=== PATIENT | female | born 1975 | race Two or more races ===

== ENCOUNTER 2020-04-09 14:40 | Outpatient (REF) | payer MEDICAID, SELFPAY | END 2020-04-09 14:41 | disposition home or self-care (01) | LOC: HO.LAB 14:40 | PROVIDERS: Visit Provider Internal Medicine | DX: Z20.828 Contact with and (suspected) exposure to other viral communicable diseases (principal) | CPT/HCPCS: C9803; U0003 ==

== ENCOUNTER 2020-08-06 12:55 | Outpatient (REF) | payer MEDICAID, SELFPAY ==
[2020-08-06 16:42] LABS: SARS COV2 PCR INHOUSE NEGATIVE (Negative)
== END 2020-08-06 12:56 | disposition home or self-care (01) ==
LOC: HO.LAB 12:55
PROVIDERS: Visit Provider Internal Medicine
DX: Z20.822 Contact with and (suspected) exposure to COVID-19 (principal)
CPT/HCPCS: C9803; U0003

== ENCOUNTER 2024-06-26 13:41 | Outpatient (AMB) | payer OTHER, SELFPAY ==
--- NOTE | 2024-06-26 13:54 | HO.NEPHOV_ITS ---
Vital Signs 06/26/24 13:55 Height 5 ft 8 in Weight 297 lb BMI 45.2 BP 120/74 Blood Pressure Location Lt brachial Position Sitting Pulse 106 H Pulse Source Pulse Oximeter Pulse Oximetry (%) 96 Oxygen Delivery Method Room Air Intake Visit Reasons: ENP: Medullary Sponge Kidney/ Conf Wireless Field Technician Required: No Accompanied by: Self / Same As Patient Allergies acetaminophen [From VICODIN] Allergy (Unknown, Verified 06/26/24 13:57) UNKNOWN hydrocodone [From VICODIN] Allergy (Unknown, Verified 06/26/24 13:57) UNKNOWN Medication List - Last Reconciled 06/26/24 by Robbie Calles MD albuterol sulfate 90 mcg/actuation (Ventolin HFA) inhalation escitalopram oxalate 5 mg PO DAILY gabapentin 300 mg PO BID hydroxyzine pamoate 25 mg PO TID PRN nitroglycerin 0.4 mg sublingual PRN HPI Comments Details: Nora is a pleasant 49-year-old woman 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 She was seen by water treatment plant engineer more than 13 years ago. She has had no further follow-up. She complains of low back pain. No urinary symptoms. She is on a regular diet Claims to drink adequate fluids. She smokes about half pack per day. No history of any illicit drug abuse [facility] Family History (Updated 06/26/24 @ 13:57 by YOU Castañeda) Mother CKD (chronic kidney disease) Diabetes Hypertension Sister Diabetes Hypertension Review of Systems Const Denies fever(s) and Denies weight loss Card Denies chest pain Resp Denies cough and Denies hemoptysis GI Denies abdominal pain, Denies diarrhea and Denies nausea Musc Denies back pain Neuro Denies focal weakness Physical Exam Vital Signs: Last Vital Signs Pulse 106 H 06/26/24 13:55 BP 120/74 06/26/24 13:55 Pulse Ox 96 06/26/24 13:55 Oxygen Delivery Method Room Air 06/26/24 13:55 BMI result Body Mass Index 45.2 Const General: comfortable; No acute distress Orientation/consciousness: patient oriented x3 Eyes General: appearance normal, both eyes and all related structures Visual Baltazar: normal visual baltazar by confrontation Neck Neck: Yes supple and Yes no JVD Resp Effort & Inspection: normal respiratory effort and respiratory effort not decreased Auscultation: rhonchi Cardio Palpation: no palpable S3 and no palpable S4 Heart sounds: no rubs GI Inspection: Yes normal to inspection Palpation (GI): Soft to palpation Percussion: Yes normal to percussion Auscultation: normal bowel sounds General: Yes no CVA tenderness Back/Spine/Pelvis Back: no CVA tenderness Skin General skin exam: no petechiae and no purpura Neuro General: patient oriented x3 and no focal motor deficits Extrem General: No clubbing and No edema Results Reviewed Results Reviewed: Serum creatinine 0.8 in 01/26/2024 Nephrology Results: No Data to Display Assessment & Plan Assessment & Plan (1) 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 I have initiated workup including renal ultrasonogram. Obtain 24 urine collection for stone studies. Based on the ultrasound and urine studies I will consider urology referral as well if needed. Encouraged her to stay on low-sodium diet She should increase fluid intake to maintain urine output of 2 L. Further recommendation will be based on the 24 hour urine collection. I have reassured her and answered all her questions Orders: Orders Sodium, 24Hr Urine Group Today Q61.5 - Medullary cystic kidney Uric Acid, 24Hr Urine Group Today Q61.5 - Medullary cystic kidney Comprehensive Met. Panel Today Q61.5 - Medullary cystic kidney Uric Acid Today Q61.5 - Medullary cystic kidney US renal BI Today Q61.5 - Medullary cystic kidney Creatinine, 24 Hr Group Today Q61.5 - Medullary cystic kidney Calcium, 24 Hr Ur Today Q61.5 - Medullary cystic kidney Oxalate, 24 Hr Today Q61.5 - Medullary cystic kidney Citric Acid 24hr Urine Today Q61.5 - Medullary cystic kidney UA and rflx microscopic Today Q61.5 - Medullary cystic kidney Coding Level of Care Code New Pt Level 4 (48716) Diagnoses Medullary sponge kidney Q61.5
[2024-06-26 13:55] VITALS: BP 120/74; PULSE 106; O2SAT 96; BMI 45.2
--- OUTSIDE RECORDS SUMMARY | 2024-06-26 14:03 | XMS_ITS | Encounter Summary ---
Author Organization [facility] Address [id number] [place] [phone] Care Team Providers Care Research Contracts Supervisor Name Role Phone [place] Solitario MD Primary Care Provider [phone] Reason for Visit * Reason Onset Date Comments Results 06/07/2024 Holter results Encounter Details Date Type Department Care Team ([facility] st Contact Info) Description 06/07/2024 Telephone [facility] - [facility] [address] [facility] [address] [place] [address] Guadalupe Mccabe NP [address] [place], [place] [id number] Results (Holter results ) Social History Tobacco Use Types Packs/Day Years Used Date Smoking Tobacco: Every Day Cigarettes Smokeless Tobacco: Never Comments:Smokes about 5-10 c igarettes daily Alcohol Use Standard Drinks/Week Comments Yes 0 (1 standard drink = 0.6 oz pur e alcohol) occasional Comments Unknown Sex and Gender Information Value Date Recorded Sex Assigned at Not on file Legal Sex Female 3:59 AM EST Gender Identity Not on file Sexual Orientation Not on file documented as of this encounter Progress Notes * Faye Agustin MA - 06/07/2024 3:31 PM EST I called and spoke with the patient and they are aware of the results of * Faye Agustin MA - 06/07/2024 3:30 PM EST ----- Message from Yvon Mccabe NP sent at 06/07/2024 8:43 AM EST ----- Beatrice--can you pls let the pt know that her monitor looked good. There were no dangerous heart rhythms identified. Each time she had symptoms, her EKG was normal This is great news. Thank you documented in this encounter Plan of Treatment Not on file documented as of this encounter Visit Diagnoses Not on filedocumented in this encounter Care Teams Research Contracts Supervisor Relationship Specialty Start Date End Date [place] Solitario MD [address] [place] [phone] PCP - General Internal Medicine 03/08/24 documented as of this encounter
--- OUTSIDE RECORDS SUMMARY | 2024-06-26 14:03 | XMS_ITS | Clinical Summary ---
Author Organization [facility] [address] [place] [address] [place] [phone] Phone Care Team Providers Care Warp Worker Name Role Phone [place] Solitario MD Primary Care Provider [phone] Allergies No known active allergies Medications gabapentin (NEURONTIN) 100 mg capsule Take 1 capsule (100 mg total) by mouth 2 (two) times a day. 03/06/2024 Active nitroglycerin (NITROSTAT) 0.[address] 1 tablet (0.4 mg total) under the tongue every 5 (five) minutes if needed for chest pain. Active albuterol HFA (PROAIR HFA ; PROVENTIL HFA ; VENTOLIN HFA) 90 mcg/actuation inhaler Inhale 2 puffs by mouth every 6 (six) hours if needed for wheezing. Active Active Problems Problem Noted Date Diagnosed Date Other chest pain 03/15/2024 Assessment & Plan (03/15/2024 3:40 PM EST): Sounds noncardiac but given ongoing dyspnea on exertion symptoms and risk factors of tobacco use family history of premature coronary disease, I think it would be reasonable to restratification her with an ETT. This would also allow me to assess her heart rate and blood pressure response to exercise since she wishes to embark on an exercise program. We will plan to do this first available. Palpitations 03/15/2024 Assessment & Plan (03/15/2024 3:40 PM EST): Will plan to do a 30-day event monitor to make sure that there are no significant arrhythmias associated with intermittent palpitation symptoms. Tobacco use 03/15/2024 Assessment & Plan (03/15/2024 3:41 PM EST): Patient is motivated to quit. She has both the nicotine patch and Nicorette gum at her disposal. I wished her the best of luck with this. Medullary sponge kidney 03/15/2024 Rheumatoid arthritis involving multiple sites Encounters Date Type Department Care Team Description 06/07/2024 Telephone [facility] - [address] [place] [address] Guadalupe Mccabe NP Results (Holter results ) 05/06/2024 7:00 AM EST Ancillary Procedure [facility] - [address] [place] [address] Palpitations 04/22/2024 Telephone [facility] Cardiology [facility] - [address] [place] [address] Guadalupe Mccabe NP 04/01/2024 10:45 AM EST Ancillary Procedure [facility] - [address] [place] [address] Chest pain, unspecified type; Palpitations 03/27/2024 Telephone [facility]iology [facility] - [address] [place] [address] Manju Vazquez MD ROCT - [id number]; ROCT Enrollment (Enrolling patient for 30 day ROCT) from Last 3 Months Family History Medical History Relation Name Comments No Known Problems Father Heart attack Maternal Grandmother Diabetes Mother ESRD Mother Heart attack Mother Diabetes Sister 1 Heart disease Sister 1 age 62 Chronic Kidney Disease Sister 2 Relation Name Status Comments Father Maternal Grandmother Mother Sister 1 Alive Sister 2 Alive Social History Tobacco Use Types Packs/Day Years Used Date Smoking Tobacco: Every Day Cigarettes Smokeless Tobacco: Never Tobacco Cessation:Ready to Q uit: Not Asked; Counseling Given: Not Answered Comments:Smokes about 5-10 cigarettes daily Alcohol Use Standard Drinks/Week Comments Yes 0 (1 standard drink = 0.6 oz pur e alcohol) occasional Comments Unknown Sex and Gender Information Value Date Recorded Sex Assigned at Not on file Legal Sex Female 3:59 AM EST Gender Identity Not on file Sexual Orientation Not on file Obstetrics History Last Filed Vital Signs Vital Sign Reading Time Taken Comments Blood Pressure 117/81 04/01/2024 10:45 AM EST Pulse 81 03/15/2024 12:54 PM EST Temperature - - Respiratory Rate - - Oxygen Saturation 95% 03/15/2024 12:54 PM EST Inhaled Oxygen Concentration - - Weight 138 kg (305 lb) 04/01/2024 10:45 AM EST Height 170.2 cm (5' 7 ) 04/01/2024 10:45 AM EST Body Mass Index 47.77 04/01/2024 10:45 AM EST Plan of Treatment Health Maintenance Due Date Last Done Comments Breast Cancer Screening 1974 DTaP,Tdap,and Td Vaccines (1 - Tdap) 1993 Hepatitis B Vaccines (1 of 3 - 19+ 3-dose series) 1993 Pneumococcal Vaccine: 50+ Ye ars (1 of 2 - PCV) 1993 Pneumococcal Vaccine: Pediat rics (0 to 5 Years) and At-Risk Patients (6 to 64 Years) (1 of 2 - PCV) 1993 Cervical Cancer Screening: P ap Smear 1995 Cholesterol Screening (Lipid Panel) 06/06/2023 Colorectal Cancer Screening: Colonoscopy 06/06/2023 Depression Screening 06/06/2023 HIV Screening 06/06/2023 Hepatitis C Screening 06/06/2023 Social Influencers of Health Screening 06/06/2023 COVID-19 Vaccine ( - 2023-2 5 season) 2024 Influenza Vaccine (#1) 2024 Zoster Vaccines (1 of 2) 02/23/2024 HIB Vaccines Aged Out No longer eligi ble based on patient's age to complete this topic HPV Vaccines Aged Out No longer eligi ble based on patient's age to complete this topic Hepatitis A Vaccines Aged Out No long er eligible based on patient's age to complete this topic IPV Vaccines Aged Out No longer eligi ble based on patient's age to complete this topic MMR Vaccines Aged Out No longer eligi ble based on patient's age to complete this topic Meningococcal ACWY Vaccine Aged Out N o longer eligible based on patient's age to complete this topic Meningococcal B Vacine Aged Out No lo nger eligible based on patient's age to complete this topic RSV Immunization Patients Un blane 20 months Aged Out No longer eligible b ased on patient's age to complete this topic Varicella Vaccines Aged Out No longer eligible based on patient's age to complete this topic Procedures Procedure Name Priority Date/Time Associated Diagnosis Comments CARDIAC AIR TESTER W/ CONNECTION (MCOT) Routine 05/06/2024 12:42 PM EST Palpitations STRESS TEST ONLY EXERCISE Routine 04/01/2024 11:23 AM EST Chest pain, unspecified type Palpitations from Last 3 Months Results * CARDIAC AIR TESTER W/ CONNECTION (MCOT) (05/06/2024 12:42 PM EST) Anatomical Region Laterality Modality Cardiac Diagnost ic Impressions 06/06/2024 5:53 PM EST 1. ??Predominantly sinus rhythm. 2. ??Short episodes of what is likely atrial tachycardia with aberrant conduction. ??Each episode lasted only 8 beats. ??Cannot rule out atrial flutter with aberrant conduction. 3. ??Patient triggered symptomatic events mainly correlated to sinus rhythm and sinus tachycardia. Narrative 06/06/2024 5:53 PM EST [facility] DI[facility] DEPARTMENT [address] [place] [address] TEL: FAX: TYPE OF TEST 30 day ROCT monitor. DATES OF MONITORIN05/06/24- 06/05/24 (Monitor removed intermittently due to skin irritation. No data after 05/29/24) REQUESTING PHYSICIAN: Manju Vazquez MD PRIMARY CARE PROVIDER: [place] Solitario MD INDICATION: Palpitations PRELIMINARY FINDINGS FROM FIRST CALL MEDICAL: 1. The predominant rhythm was sinus, with sinus arrhythmia. The average heart rate was 79 bpm, minimum heart rate was 46 bpm, maximum heart rate was 149 bpm. 2. ??There was occasional ventricular ectopy. ??The overall burden was 0.2%, consisting of singles, couplets, triplets, 3. ??There were a 2 runs of what is likely atrial tachycardia with aberrant conduction versus atrial flutter with aberrant conduction. ??Both lasted for 8 beats. 4. ??There was occasional supraventricular ectopy. ??The overall burden was 0.9%, consisting of singles, couplets, & SVE triplets. 5. There were 14 patient triggered symptomatic events. ??They mainly correlated to either sinus rhythm or sinus tachycardia in the 100s to 130s. Manju Vazquez MD CV CARDIAC SERVICES PROCEDURES Final Result * Exercise stress test (04/01/2024 11:23 AM EST) Exercise/inject ion duration (min) 3 CV STRESS ONLY Exercise/inject ion duration (sec) 27 CV STRESS ONLY Peak SBP 152 mmHg CV STRESS ONLY Peak DBP 68 mmHg CV STRESS ONLY Peak HR 153 bpm CV STRESS ONLY Baseline HR 101 bpm CV STRES S ONLY Baseline SBP 117 mmHg CV STRE SS ONLY Baseline DBP 81 mmHg CV STRE SS ONLY Estimated workload 5.6 METS CV STRESS ONLY Percent HR 90 % CV STRESS ONLY Rate Pressure Product 23,256.0 mmHg*bpm CV STRESS ONLY Target HR 145 bpm CV STRESS ONLY Angina Index 0 CV STRE SS ONLY Max HR Percent 90 % CV ST RESS ONLY O2 sat rest 97 % CV STRES S ONLY ST Depression (mm) 0 mm CV STRESS ONLY Anatomical Region Laterality Modality Cardiac Diagnost ic 04/01/2024 10:4 6 AM EST 04/01/2024 11:27 AM EST Narrative 04/01/2024 4:55 PM EST ?Stress ECG was normal. No evidence of ischemia by ECG at this adequate level of stress. ?Exercise capacity was below average. Normal blood pressure response. ?Rapid increase in heart rate suggests deconditioning. Stress Findings A Jean protocol stress test was performed. Overall, the patient's exercise capacity was below average. The patient reached stage 2. Total stress time was 3 min and 27 sec. The patient experienced no angina during the test. The test was stopped because the patient experienced fatigue, shortness of breath and left leg pain. The patient requested the test to be stopped. Blood pressure demonstrated a normal response. Heart rate demonstrated a exaggerated response. The patient reported shortness of breath during the stress test which resolved in early recovery. ECG 49-year-old female with atypical chest pain and palpitations; rule out ischemia. Cardiac risk factors include obesity and current tobacco use. Baseline ECG shows normal sinus rhythm, rate of 85 bpm. Arrhythmias during stress: rare premature atrial contractions (PACs), occasional premature ventricular contractions (PVCs) . There is no ST segment changes during stress. Arrhythmias during recovery: occasional premature ventricular contractions (PVCs). The result of the stress ECG was negative for ischemia. Manju Vazquez MD CV STRESS PROCEDURES Final Resu lt from Last 3 Months Insurance [facility] [email or web address] PLAN Care Teams Warp Worker Relationship Specialty Start Date End Date [place] Solitario MD [address] [facility] [address] [place] [phone] PCP - General Internal Medicine 03/08/24
== END 2024-06-26 14:11 | disposition home or self-care (01) ==
LOC: HO.HKAM 13:41
PROVIDERS: PCP Internal Medicine; Referring Provider Internal Medicine; Visit Provider Internal Medicine Hypertension Specialist
DX: Q61.5 Medullary cystic kidney (principal)
CPT/HCPCS: 99204

== ENCOUNTER → 2024-06-26 13:41 | Outpatient (BNVA) | payer OTHER, SELFPAY | PROVIDERS: PCP Internal Medicine; Referring Provider Internal Medicine; Visit Provider Internal Medicine Hypertension Specialist | DX: Q61.5 Medullary cystic kidney (principal) | CPT/HCPCS: 99202 ==

== ENCOUNTER 2024-06-26 14:21 | Outpatient (REF) | payer OTHER, SELFPAY ==
--- OUTSIDE RECORDS SUMMARY | 2024-06-26 14:29 | XMS_ITS | Clinical Summary ---
Author Organization [facility] [address] [place] [address] [place] [phone] Phone Care Team Providers Care Heater Operator Name Role Phone [place] Solitario MD Primary Care Provider [phone] Allergies No known active allergies Medications gabapentin [...] Type Department Care Team Description 06/07/2024 Telephone [facility] - [address] [place] [address] Guadalupe Mccabe NP Results (Holter results ) 05/06/2024 7:00 AM EST Ancillary Procedure [facility] - [address] [place] [address] Palpitations 04/22/2024 Telephone [facility] Cardiology [facility] - [address] [place] [address] Guadalupe Mccaeb NP 04/01/2024 10:45 AM EST Ancillary Procedure [facility] - [address] [place] [address] Chest pain, unspecified type; Palpitations 03/27/2024 Telephone [facility] Cardiology [facility] - [address] [place] [address] Manju Vazquez MD ROCT - [id number]; ROCT Enrollment (Enrolling patient for 30 day [...] Name Priority Date/Time Associated Diagnosis Comments CARDIAC MEDICAL PHYSIOLOGIST W/ CONNECTION (MCOT) Routine 05/06/2024 12:42 PM EST Palpitations STRESS TEST ONLY EXERCISE Routine 04/01/2024 11:23 AM EST Chest pain, unspecified type Palpitations from Last 3 Months Results * CARDIAC MEDICAL PHYSIOLOGIST W/ CONNECTION (MCOT) (05/06/2024 12:42 PM EST) [...] sinus tachycardia. Narrative 06/06/2024 5:53 PM EST [facility] DI[facility] TESTING DEPARTMENT [address] [place] [address] TEL: FAX: TYPE OF TEST 30 day [...] Resu lt from Last 3 Months Insurance [facility] [employer] PL[employer] Care Teams Heater Operator Relationship Specialty Start Date End Date Florida Solitario MD [address] [facility] 300 [place] [address] PCP - General Internal Medicine 03/08/24
--- OUTSIDE RECORDS SUMMARY | 2024-06-26 14:29 | XMS_ITS | Encounter Summary ---
Author Organization [facility] Address [address] [place] [phone] Care Team Providers Care Salesperson Men[employer] Name Role Phone [place] Solitario MD Primary Care Provider [phone] Reason for Visit * Reason Onset Date Comments Results 06/07/2024 Holter results Encounter Details Date Type Department Care Team ([facility] st Contact Info) Description 06/07/2024 Telephone [facility] - [facility] [address] [facility] [address] [place] [address] Guadalupe Mccabe NP [address] [place], [place] [id number] Results (Holter results ) Social History Tobacco [...] on filedocumented in this encounter Care Teams Salesperson [employer] Relationship Specialty Start Date End Date Florida Solitario MD [address] [place] [phone] PCP - General Internal Medicine 03/08/24 documented as of this encounter
[2024-06-26 16:37] LABS: Alanine Aminotransferase 16 U/L (0-31); Albumin Level 3.8 g/dL (3.5-5.0); Alkaline Phosphatase 101 U/L (39-117); Anion Gap 10 (12-20); Aspartate Amino Transferase 17 U/L (5-31); Bilirubin Total 0.2 mg/dL (0.0-1.0); Blood Urea Nitrogen 11 mg/dL (9-16); Carbon Dioxide 26 mmol/L (22-29); Chloride 108 mmol/L (96-108); Estimated Glomerular Filt Rate > 60; Glucose Random 90 mg/dL (60-115); Sodium 140 mmol/L (135-145); Total Protein 7.6 g/dL (6.5-8.0); Uric Acid 5.3 mg/dL (2.4-5.7)
== END 2024-06-26 14:22 | disposition home or self-care (01) ==
LOC: HO.HHCL 14:21
PROVIDERS: Visit Provider Internal Medicine Hypertension Specialist
DX: Q61.5 Medullary cystic kidney (principal)
CPT/HCPCS: 36415; 80053; 84550

== ENCOUNTER 2024-06-27 14:42 | Outpatient (REF) | payer OTHER, SELFPAY ==
--- OUTSIDE RECORDS SUMMARY | 2024-06-27 15:50 | XMS_ITS | Encounter Summary ---
Author Organization [facility] Address [address] [place] [phone] Care Team Providers Care Collection Agent Name Role Phone [place] Solitario MD Primary Care Provider [phone] Reason for Visit * Reason Onset Date Comments Results 06/07/2024 Holter results Encounter Details Date Type Department Care Team ([facility] st Contact Info) Description 06/07/2024 Telephone [facility] - [facility] [address] [facility] [address] [place] [address] Guadalupe Mccabe NP [address] [place], [place] [phone] Results (Holter results ) Social History Tobacco [...] on filedocumented in this encounter Care Teams Collection Agent Relationship Specialty Start Date End Date [place] Solitario MD [address] [place] [phone] PCP - General Internal Medicine 03/08/24 documented as of this encounter
--- OUTSIDE RECORDS SUMMARY | 2024-06-27 15:50 | XMS_ITS | Clinical Summary ---
Author Organization [facility] [address] [place] [address] [place] [phone] Phone Care Team Providers Care Provider Scribe Name Role Phone [place] Solitario MD Primary Care Provider [phone] Allergies No known active allergies Medications gabapentin [...] Type Department Care Team Description 06/07/2024 Telephone [facility] - [address] [place] [address] Guadalupe Mccabe NP Results (Holter results ) 05/06/2024 7:00 AM EST Ancillary Procedure [facility] - [address] [place] [address] Palpitations 04/22/2024 Telephone [facility] Cardiology [facility] - [address] [place] [address] Guadalupe Mccabe NP 04/01/2024 10:45 AM EST Ancillary Procedure [facility] - [address] [place] [address] Chest pain, unspecified type; Palpitations 03/27/2024 Telephone [facility] Cardiology [facility] - [address] [place] [address] Manju Vazquez MD ROCT - [id number]; ROCT Enrollment (Enrolling patient for 30 day [...] Name Priority Date/Time Associated Diagnosis Comments CARDIAC SUPERVISOR METAL CANS W/ CONNECTION (MCOT) Routine 05/06/2024 12:42 PM EST Palpitations STRESS TEST ONLY EXERCISE Routine 04/01/2024 11:23 AM EST Chest pain, unspecified type Palpitations from Last 3 Months Results * CARDIAC SUPERVISOR METAL CANS W/ CONNECTION (MCOT) (05/06/2024 12:42 PM EST) [...] sinus tachycardia. Narrative 06/06/2024 5:53 PM EST [facility] DIAGNOSTIC TESTING DEPARTMENT [address] [place] [address] TEL: FAX: TYPE OF TEST 30 day [...] Resu lt from Last 3 Months Insurance [facility] [employer] PL[employer] Care Teams Provider Scribe Relationship Specialty Start Date End Date Florida Solitario MD [address] [facility] [address] [place] [address] PCP - General Internal Medicine 03/08/24
[2024-06-27 16:29] LABS: Appearance Urine Turbid; Color Urine Yellow; Glucose Urine UA Negative (Negative); Leukocyte Esterase Urine Large (3+) (Negative); Nitrite Urine Negative (Negative); Specific Gravity - Urine 1.025 (1.005-1.025); UMIC TRIGGER UA YES; Urine Blood Negative (Negative); Urine Ketones Negative (Negative); Urine Protein Negative (Neg-Trace)
[2024-06-27 16:30] LABS: Estimated Glomerular Filt Rate > 60
[2024-06-27 17:17] LABS: Bacteria Urine 4+ (None Seen); Hyaline Casts Urine 0-2 /LPF (0-2); RBC Urine 0-2 /HPF (0-2); Squamous Epithelial Cell Urine >20 /HPF (0-2); WBC Urine >50 /HPF (0-5)
[2024-06-27 17:23] LABS: Creatinine, mg/dL 157.58
[2024-06-27 17:26] LABS: Creatinine, mg/dL 157.56; Uric Acid, mg/dL 51.5 mg/dL
[2024-06-27 18:25] LABS: Total Volume 24 Hour Urine 1250 mL
[2024-06-27 18:26] LABS: Total Volume 24 Hour Urine 1250 mL
[2024-06-27 18:27] LABS: Uric Acid, 24 Hr Urine 643.8 mg/Day (250-750)
[2024-06-29 21:24] LABS: Calcium, 24 Hr Urine 120 mg/24 h; Calcium/Creatinine Ratio 64 mg/g creat (30-275); Creatinine 24Hr Urine 1.86 g/24 h (0.50-2.15)
[2024-07-02 22:19] LABS: 24hr Urine Total Volume 1250 mL; Citric Acid, 24hr Urine 726 mg/24 h (100-1300); Citric Acid/Creat Ratio 24U 395 mg/g creat (180-1070); Creatinine, 24U 1.84 g/24 h (0.50-2.15)
[2024-07-03 20:33] LABS: 24hr Urine Total Volume 1250 mL; Oxalic Acid 24 Urine 40.1 mg/24 h (3.6-38.0)
== END 2024-06-27 14:43 | disposition home or self-care (01) ==
LOC: HO.HHCL 14:42
PROVIDERS: Visit Provider Internal Medicine Hypertension Specialist
DX: Q61.5 Medullary cystic kidney (principal)
CPT/HCPCS: 36415; 81001; 82340; 82507; 82565; 83945; 84300; 84560

== ENCOUNTER 2024-07-30 15:12 | Outpatient (REF) | payer OTHER, SELFPAY ==
--- NOTE | ~2024-07-30 | US_ITS ---
EXAMINATION: Ultrasound renal bilaterally. CLINICAL INFORMATION: Medullary cystic kidney. COMPARISON: No priors. TECHNIQUE: Real-time ultrasound of the kidneys using grayscale and color Doppler technique. FINDINGS: Right kidney: 11 x 5 x 3 cm. Volume: 93 cc. Normal echotexture. No hydronephrosis. No gross solid or cystic lesion. Nonspecific punctate hyperechoic foci in the lower pole. There is normal flow on color Doppler interrogation of the renal hilum. Left kidney: 10 x 5 x 4 cm. Volume: 100 cc. Normal echotexture. Normal renal cortical thickness. No hydronephrosis. No solid or cystic lesion. Normal flow on color Doppler interrogation of the renal hilum. US/US renal BI IMPRESSION: No hydronephrosis. Questionable nonobstructing nephrolithiasis, right kidney. Electronically signed by: Michel Colon MD 07/30/2024 03:53 PM EDT
--- OUTSIDE RECORDS SUMMARY | 2024-07-30 19:04 | XMS_ITS | Clinical Summary ---
Author Organization [facility] [address] [place] [address] [place] [phone] Phone Care Team Providers Care Despatching And Receiving Clerk Name Role Phone [place] Solitario MD Primary Care Provider [phone] Allergies No known active allergies Medications gabapentin [...] Telephone [facility] - [address] [place] [id number] Guadalupe Mccabe NP Results (Holter results ) 05/06/2024 7:00 AM EST Ancillary Procedure [facility] - [address] [place] [phone] Palpitations from Last 3 Months Family History Medical [...] Influencers of Health Screening 06/06/2023 COVID-19 Vaccine (2023-2 5 season) 2024 Influenza Vaccine (#1) 2024 [...] Name Priority Date/Time Associated Diagnosis Comments CARDIAC IMPLANT POLISHER W/ CONNECTION (MCOT) Routine 05/06/2024 12:42 PM EST Palpitations from Last 3 Months Results * CARDIAC IMPLANT POLISHER W/ CONNECTION (MCOT) (05/06/2024 12:42 PM EST) [...] sinus tachycardia. Narrative 06/06/2024 5:53 PM EST [facility]PARTMENT [address] [place] [address], [address] [address] TEL: FAX: TYPE OF TEST 30 day [...] MD CV CARDIAC SERVICES PROCEDURES Final Result from Last 3 Months Insurance [facility] Care Teams Despatching And Receiving Clerk Relationship Specialty Start Date End Date [place] Solitario MD [address] [phone] PCP - General Internal Medicine 03/08/24
== END 2024-07-30 15:13 | disposition home or self-care (01) ==
LOC: HO.US 15:12
PROVIDERS: Visit Provider Internal Medicine Hypertension Specialist
DX: Q61.5 Medullary cystic kidney (principal)
CPT/HCPCS: 76775

== ENCOUNTER → 2024-07-30 15:14 | Outpatient (BNV) | payer OTHER, SELFPAY | PROVIDERS: Visit Provider Radiology Diagnostic Radiology | DX: Q61.5 Medullary cystic kidney (principal) | CPT/HCPCS: 76775 ==

== ENCOUNTER 2024-08-21 13:38 | Outpatient (AMB) | payer OTHER, SELFPAY ==
--- NOTE | 2024-08-21 13:42 | HO.NEPHOV ---
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: No Accompanied by: Self / Same As Patient Allergies acetaminophen [From VICODIN] Allergy (Unknown, Verified 08/21/24 13:47) UNKNOWN hydrocodone [From VICODIN] Allergy (Unknown, Verified 08/21/24 13:47) UNKNOWN Medication List - Last Reconciled 08/21/24 by Robbie Calles MD albuterol sulfate 90 mcg/actuation (Ventolin HFA) inhalation escitalopram oxalate 5 mg PO DAILY gabapentin 300 mg PO BID hydroxyzine pamoate 25 mg PO TID PRN nitroglycerin 0.4 mg sublingual PRN Do you need a note to return to daycare/school/sports/work: No HPI Comments Details: Nora is a pleasant 49-year-old woman 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 She was seen by fire behavior analyst more than 13 years ago. She has had no further follow-up. She complains of low back pain. No urinary symptoms. She is on a regular diet Claims to drink adequate fluids. She smokes about half pack per day. No history of any illicit drug abuse [facility] Family History Mother CKD (chronic kidney disease) Diabetes Hypertension Sister Diabetes Hypertension Physical Exam Vital Signs: Last Vital Signs Pulse 92 08/21/24 13:43 BP 118/64 08/21/24 13:43 Pulse Ox 95 08/21/24 13:43 Oxygen Delivery Method Room Air 08/21/24 13:43 BMI result Body Mass Index 38.8 Const General: comfortable; No acute distress Orientation/consciousness: patient oriented x3 Eyes General: appearance normal, both eyes and all related structures Visual Baltazar: normal visual baltazar by confrontation Neck Neck: Yes supple and Yes no JVD Resp Effort & Inspection: normal respiratory effort and respiratory effort not decreased Auscultation: rhonchi Cardio Palpation: no palpable S3 and no palpable S4 Heart sounds: no rubs GI Inspection: Yes normal to inspection Palpation (GI): Soft to palpation Percussion: Yes normal to percussion Auscultation: normal bowel sounds General: Yes no CVA tenderness Back/Spine/Pelvis Back: no CVA tenderness Skin General skin exam: no petechiae and no purpura Neuro General: patient oriented x3 and no focal motor deficits Extrem General: No clubbing and No edema Results Reviewed Results Reviewed: Renal ultrasonogram. July 2024. 11 x 5 x 3 cm. Volume: 93 cc. Normal echotexture. No hydronephrosis. No gross solid or cystic lesion. Nonspecific punctate hyperechoic foci in the lower pole. There is normal flow on color Doppler interrogation of the renal hilum. Left kidney: 10 x 5 x 4 cm. Volume: 100 cc. Normal echotexture. Normal renal cortical thickness. No hydronephrosis. No solid or cystic lesion. Normal flow on color Doppler interrogation of the renal hilum. 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 Renal ultrasonogram - normal 24 urine collection for stone studies. Volume is low NA elevated mild elevation in oxalate Low oxalate diet Encouraged her to stay on low-sodium diet She should increase fluid intake to maintain urine output of 2 L. I have reassured her and answered all her questions Orders: Orders Basic Metabolic Panel 6 Months Q61.5 - Medullary cystic kidney Coding Level of Care Code Est Pt Level 4 (49696) Diagnoses Medullary sponge kidney Q61.5
[2024-08-21 13:43] VITALS: BP 118/64; PULSE 92; O2SAT 95; BMI 38.8
--- OUTSIDE RECORDS SUMMARY | 2024-08-21 16:17 | XMS_ITS | Clinical Summary ---
Author Organization [facility] [address] [place] [address] [place] [phone] Phone Care Team Providers Care High School Social Studies Teacher Name Role Phone [place] Solitario MD Primary Care Provider [phone] Allergies No known active allergies Medications gabapentin [...] this. Medullary sponge kidney 03/15/2024 Rheumatoid arthritis involvi ng multiple sites ([facility] V24, [facility] V28) 03/15/2024 Encounters Date Type Department Care Team Description 06/07/2024 Telephone [facility] [address] [facility] [address] [place] [address] Guadalupe Mccabe NP Results (Holter results ) from Last 3 Months Family History Medical [...] Vaccine ( - 2023-2 5 season) 2024 Zoster Vaccines (1 of 2) 02/23/2024 Influenza Vaccine (Season Ended) 2025 HIB Vaccines Aged Out No longer eligi [...] age to complete this topic Meningococcal B Vaccine Aged Out No l onger eligible based on patient's age to complete this topic RSV Immunization Patients Un blane 20 months Aged Out No longer eligible b ased on patient's age to complete this topic Varicella Vaccines Aged Out No longer eligible based on patient's age to complete this topic Insurance [facility] Care Teams High School Social Studies Teacher Relationship Specialty Start Date End Date Florida Solitario MD [address] [phone] PCP - General Internal Medicine 03/08/24
== END 2024-08-21 14:05 | disposition home or self-care (01) ==
LOC: HO.HKAM 13:38
PROVIDERS: PCP Internal Medicine; Visit Provider Internal Medicine Hypertension Specialist
DX: Q61.5 Medullary cystic kidney (principal)
CPT/HCPCS: 99214

== ENCOUNTER → 2024-08-21 13:38 | Outpatient (BNVA) | payer OTHER, SELFPAY | PROVIDERS: PCP Internal Medicine; Visit Provider Internal Medicine Hypertension Specialist | DX: Q61.5 Medullary cystic kidney (principal) | CPT/HCPCS: 99212 ==

== ENCOUNTER 2025-01-09 07:44 | Outpatient (AMB) | payer OTHER, SELFPAY ==
--- OUTSIDE RECORDS SUMMARY | 2025-01-09 07:47 | XMS_ITS | Clinical Summary ---
Author Organization [facility] [address] [place] [address] [place] [phone] Phone Care Team Providers Care Educational Psychology Professor Name Role Phone [place] Solitario MD Primary Care Provider [phone] Allergies No known active allergies Medications gabapentin [...] 03/15/2024 Rheumatoid arthritis involvi ng multiple sites ([facility] V24, [facility] V28) 03/15/2024 Family History Medical History Relation Name Comments [...] ars (1 of 2 - PCV) 1993 Cervical Cancer Screening: P ap Smear 1995 Cholesterol Screening (Lipid Panel) 06/06/2023 Colorectal Cancer Screening: Colonoscopy 06/06/2023 HIV Screening 06/06/2023 Hepatitis C Screening 06/06/2023 Social Influencers of Health Screening 06/06/2023 Zoster Vaccines (1 of 2) 02/23/2024 Depression Screening 05/08/2024 COVID-19 Vaccine (1 - 2023-2 5 season) 2025 Influenza Vaccine (#1) 2025 HIB Vaccines Aged Out No longer [...] patient's age to complete this topic Insurance [facility] Care Teams Educational Psychology Professor Relationship Specialty Start Date End Date [place] Solitario MD [address] [place] [address] [address] [place] [phone] PCP - General Internal Medicine 03/08/24
--- NOTE | 2025-01-09 07:50 | A.OFFVIS_ITS ---
Vital Signs 01/09/25 07:52 Height 5 ft 8 in Weight 280 lb BMI 42.6 BP 119/63 Blood Pressure Location Lt brachial Position Sitting Pulse 107 H Pulse Oximetry (%) 98 Oxygen Delivery Method Room Air Intake Visit Reasons: colo screening Intake Note: Patient new consult for 1st pre Colonoscopy screening. Patient cc: abdominal pain/sharp with bloating, GERD, N/V, and between diarrhea and constipation. Transportation Analyst Required: No Accompanied by: Self / Same As Patient Allergies acetaminophen (From VICODIN) Allergy (Unknown, Verified 01/09/25 07:50) UNKNOWN hydrocodone (From VICODIN) Allergy (Unknown, Verified 01/09/25 07:50) UNKNOWN Medication List - Last Reconciled 01/09/25 by Hue Jarrett CNP albuterol sulfate 90 mcg/actuation (Ventolin HFA) inhalation escitalopram oxalate 5 mg PO DAILY gabapentin 300 mg PO BID hydroxyzine pamoate 25 mg PO TID PRN ibuprofen 800 mg PO Q8H PRN nitroglycerin 0.4 mg sublingual PRN HPI HPI colo screening: Details: Patient is a 49-year-old female with PMH of obesity, depression, anxiety, RA and prediabetes. Referred by PCP for pre colonoscopy screening. Nora reports various GI symptoms. She describes nausea occurring daily, sometimes accompanied by vomiting about 1-2 times per month. She notes decreased appetite over the past two months. Recurrent, generalized abdominal pain, described as heavy with intermittent sharp episodes, has been ongoing for some time. The pain appears to improve after bowel movements but does not seem influenced by food intake. Bowel movements are generally type 3-4 on the Young Stool Chart, with a frequency of 2-3 times daily. She denies blood in stools except for one episode related to a hemorrhoid three to four years ago. She also reports chronic heartburn, frequent regurgitation, and attempts symptomatic relief with lactase-containing milk or nyzm-oih-flcnzxh antacids like Rolaids, with inconsistent results. She has a history of regular NSAID use, consuming ibuprofen 3 times per week for back pain. She denies diarrhea, fever, or chills. Significant weight fluctuation noted, with a maximum weight of 297 lbs as recently as June and intermittent weight loss through increased activity that has since been regained. History of cardiovascular symptoms managed with nitroglycerin 1-2 times per month for chest pain, per cardiology. She also mentions an unclear history of kidney concerns and follows dietary restrictions accordingly. Patient denies: fever/chills, dysphasia, unintentional wt loss or melena/hematochezia. Social hx: -Diet: Reports healthy eating, avoids fried foods and red meat, consumes air- fried chicken or fish, and a balanced intake of vegetables and fruit. Occasionally skips meals, limits processed foods. -Occasional alcohol use (every other weekend) -marijuana use approx 2x/month, denies other recreational drug use - current 7 cigarettes/day smoker - family hx as below -denies personal hx of CA -tolerated anesthesia in the past without difficulty. [facility] Medical History (Updated 01/09/25 @ 08:48 by Hue Jarrett CNP) Abdominal pain Acid reflux Colon cancer screening Family History Mother CKD (chronic kidney disease) Diabetes Hypertension Sister Diabetes Hypertension Review of Systems Const Reports as per HPI ENT Reports as per HPI Card Reports as per HPI Resp Reports as per HPI GI Reports as per HPI Reports as per HPI Physical Exam Const General: healthy appearing, no acute distress and well developed Nutritional Appearance: obese Orientation/consciousness: patient oriented x3 HEENT Head: Yes normal to inspection, Yes normocephalic and Yes atraumatic Face and sinus: Yes normal facial exam Eyes General: appearance normal, both eyes and all related structures Neck Neck: Yes normal visual inspection Resp Effort & Inspection: normal respiratory effort, able to speak in complete sentences, no tracheal deviation and symmetric chest movement GI Inspection: Yes normal to inspection, No distended, Yes obesity and Yes striae Palpation (GI): Soft to palpation, not firm, nontender and No hepatosplenomegaly present Auscultation: normal bowel sounds Neuro General: patient oriented x3 Gait exam (Neuro): Normal gait present Psych Appearance: grossly normal Mental Status: mental status grossly normal Speech and movement: Normal speech and movement present Affect: Anxious affect present Attitude: cooperative Thought process: Normal thought process present Thought content: Normal thought content present Insight: Fair insight present (Psych) Judgement: Good judgement present (Psych) Assessment & Plan Assessment & Plan (1) Colon cancer screening: Code(s): Z12.11 - Encounter for screening for malignant neoplasm of colon Category: Medical Plan: Due for index screening colonoscopy. Isolated episode of rectal bleed bleeding > 3 years ago, likely hemorrhoidal induced Medications:prescriptions for laxative tablets and MiraLax sent to pharmacy. -will need clearance from cardiology to proceed due to nitroglycerin use. -We will review complete pre colonoscopy instructions discussed procedure details at next visit to manage anxiety. (2) Acid reflux: Code(s): K21.9 - Gastro-esophageal reflux disease without esophagitis Category: Medical Qualifiers: Esophagitis presence: esophagitis presence not specified Qualified Code(s): K21.9 - Gastro-esophageal reflux disease without esophagitis Plan: Chronic heartburn, regurgitation, nausea, partial response to antacids, NSAID use. Additional Testing: H. pylori breath test; EGD at time of colonoscopy to assess for esophagitis, ulcers, Archer?s. Medication Management: Omeprazole 20 mg daily?initiate only after H. pylori test completed. Lifestyle Recommendations: Avoid NSAIDs, limit reflux triggers, continue healthy diet, maintain hydration. Follow-Up: Reassess in 2 months post-breath test and PPI trial. (3) Abdominal pain: Code(s): R10.9 - Unspecified abdominal pain Category: Medical Qualifiers: Abdominal location: generalized Qualified Code(s): R10.84 - Generalized abdominal pain Plan: Chronic, generalized abdominal pain relieved by defecation, not food-related, normal BMs, no alarm features. Differential Diagnoses: Peptic ulcer disease secondary to NSAID use VS H. pylori infection; functional dyspepsia, IBS, gastritis. Reviewed prior labs: March 2024 ( PCP referral) and June 2024?renal and hepatic function WNL, A1c 5.7 (pre-diabetes), normal thyroid, no anemia, reassuring overall Additional Testing: None indicated beyond planned EGD/colonoscopy to exclude organic pathology. Medication Management: Symptomatic management as above; no specific IBS therapy initiated at this time. Lifestyle Recommendations: Continue high-fiber diet, hydration, regular activity, monitor for symptom changes. Follow-Up: Reassess after endoscopic evaluation and PPI trial; consider IBS- specific management if symptoms persist and no organic etiology found. Constipation stool Plan Follow up: -tomorrow with nursing for H. pylori testing -2 months with provider or sooner as needed Time: I spent a total of 45 minutes on the date of encounter which includes: Preparing to see the patient (reviewed previous documentation, test results and medical history) Performing a medically appropriate exam and/or evaluation Ordering medications, tests, and procedures Documenting clinical information in the health record Orders: Orders H Pylori Breath Test Today Medications: New bisacodyl Take per colonoscopy instructions 5 mg PO BID 4 tabs 0RF omeprazole Take one tablet daily. Best taken on an empty, 30 minutes before eating. 20 mg PO DAILY 90 caps 1RF polyethylene glycol 3350 (Miralax) per colonoscopy prep instructions 238 grams PO ONCE 238 grams 0RF Coding Level of Care Code New Pt New Pt Level 4 (02853) Patient Type New Diagnoses Colon cancer screening Z12.11 Gastroesophageal reflux disease, unspecified whether esophagitis present K21.9 Esophagitis presence: esophagitis presence not specified Generalized abdominal pain R10.84 Abdominal location: generalized
[2025-01-09 07:52] VITALS: BP 119/63; PULSE 107; O2SAT 98; BMI 42.6
== END 2025-01-09 08:38 | disposition home or self-care (01) ==
LOC: HO.HGI 07:45
PROVIDERS: PCP Internal Medicine; Visit Provider Nurse Practitioner Family
DX: Z01.818 Encounter for other preprocedural examination (principal); Z12.11 Encounter for screening for malignant neoplasm of colon; K21.9 Gastro-esophageal reflux disease without esophagitis; R10.84 Generalized abdominal pain
CPT/HCPCS: 99204

== ENCOUNTER → 2025-01-09 07:44 | Outpatient (BNVA) | payer OTHER, SELFPAY | PROVIDERS: PCP Internal Medicine; Visit Provider Nurse Practitioner Family | DX: Z01.818 Encounter for other preprocedural examination (principal); Z12.11 Encounter for screening for malignant neoplasm of colon; K21.9 Gastro-esophageal reflux disease without esophagitis; R10.84 Generalized abdominal pain | CPT/HCPCS: 99202 ==

== ENCOUNTER 2025-01-10 09:18 | Outpatient (REF) | payer OTHER, SELFPAY | END 2025-01-10 09:19 | disposition home or self-care (01) | LOC: HO.LNP 09:18 | PROVIDERS: PCP Internal Medicine; Visit Provider Nurse Practitioner Family | DX: Z11.2 Encounter for screening for other bacterial diseases (principal) | CPT/HCPCS: 83013; 99211 ==

== ENCOUNTER 2025-03-13 08:17 | Outpatient (AMB) | payer OTHER, SELFPAY ==
[2025-03-13 08:20] VITALS: BP 114/51; PULSE 78; BMI 45.9
--- NOTE | 2025-03-13 08:20 | MHC.OFFVIS ---
Vital Signs 03/13/25 08:20 Height 5 ft 8 in Weight 302 lb 0.533 oz BMI 45.9 BP 114/51 L Blood Pressure Location Lt radial Position Sitting Pulse 78 Intake Visit Reasons: 2mth fuv hpylori Intake Note: Nora presents in the office as a follow up for her H Pylori. CC: spasm in her stomach and states that she did not finish the treatment - she only did 13 days because she had vomiting, diarrhea on herself and states that it smelt like her medications. Digital Media Manager Required: No Allergies acetaminophen (From VICODIN) Allergy (Unknown, Verified 03/13/25 08:22) UNKNOWN hydrocodone (From VICODIN) Allergy (Unknown, Verified 03/13/25 08:22) UNKNOWN HPI HPI 2mth fuv hpylori: Details: Patient is a 49-year-old female with PMH of obesity, depression, anxiety, RA and prediabetes. FU for prior H. pylori infxn s/p quadruple therapy; review recent GI sx, med tolerance, and status of planned GI procedures (EGD/colonoscopy) Since last visit (Jan), pt reports significant improvement in abd pain?now resolved post H. pylori tx. Noted difficult tolerance of quadruple therapy (GI upset, vomiting), self-discontinued after 13 days (ended ~02/27). Did not notify clinic regarding sx at that time. Persistent reflux (burning in throat, some regurg), continues to use what sounds like bismuth PRN. No dysphagia. Stools remain soft/putty, occurring 2?3x/day, no reported hematochezia. Diet: limited fiber, regular coffee/toast AM, salad lunch, meat/pasta dinner, occasional cookie/snack, good hydration Awaiting cardiac clearance for planned EGD/colonoscopy, not yet scheduled. Reports plan for outpatient RUQ U/S to eval GB pain via PCP (outside network); pending surgical consult for potential cholecystectomy. No new hospitalizations, ED visits, or acute GI flares [facility] Medical History (Updated 03/13/25 @ 09:04 by Hue Jarrett CNP) Loose stools Positive H. pylori test Abdominal pain Acid reflux Colon cancer screening Family History Mother CKD (chronic kidney disease) Diabetes Hypertension Sister Diabetes Hypertension Review of Systems Const Reports as per HPI ENT Reports as per HPI Card Reports as per HPI Resp Reports as per HPI GI Reports as per HPI Reports as per HPI Physical Exam Vital Signs: Last Vital Signs Pulse 78 03/13/25 08:20 BP 114/51 L 03/13/25 08:20 BMI result Body Mass Index 45.9 Const General: healthy appearing, no acute distress and well developed Nutritional Appearance: average body habitus Orientation/consciousness: patient oriented x3 HEENT Head: Yes normal to inspection, Yes normocephalic and Yes atraumatic Face and sinus: Yes normal facial exam Eyes General: appearance normal, both eyes and all related structures Neck Neck: Yes normal visual inspection Resp Effort & Inspection: normal respiratory effort, able to speak in complete sentences, no tracheal deviation and symmetric chest movement Cardio Jugular venous distension: no JVD Neuro General: patient oriented x3 Gait exam (Neuro): Normal gait present Psych Appearance: grossly normal Mental Status: mental status grossly normal Speech and movement: Normal speech and movement present Affect: normal affect Attitude: cooperative Thought process: Normal thought process present Thought content: Normal thought content present Insight: Good insight present (Psych) Judgement: Good judgement present (Psych) Assessment & Plan Assessment & Plan (1) Positive H. pylori test: Code(s): A04.8 - Other specified bacterial intestinal infections Category: Medical Plan: Improving; abd pain resolved, but persistent reflux and GI intolerance to tx. Did not complete full 14d tx course (13 days only). Will retest to confirm eradication. Per protocol, must wait >= 4 weeks after ABX and 2wks off PPI for reliable retesting. Additional testing: - H. pylori breath test: to be done >=03/28/25. Medications: - Hold omeprazole x2wk prior to test (last dose held per pt 03/13). - D/c bismuth subsalicylate Lifestyle Recommendations: - Reinforce need for strict med adherence; encourage pt to notify office promptly for future intolerances. Referrals / Coordination of Care: - N/A Follow-Up Plan: - Reassess >= 4 week after H. pylori testing (after 03/28/25). - If eradication failure, discuss alt regimens/support for tolerability. (2) Acid reflux: Code(s): K21.9 - Gastro-esophageal reflux disease without esophagitis Category: Medical Qualifiers: Esophagitis presence: esophagitis presence not specified Qualified Code(s): K21.9 - Gastro-esophageal reflux disease without esophagitis Plan: Mild persistent symptoms?burning throat, intermittent regurg, no dysphagia. Symptoms continue PRN, currently not using omeprazole (per test prep recommendations). Additional testing: - None (pending post-H. pylori test). Medications: - Initiate famotidine 20 mg BID PRN for reflux relief (up to twice daily), hold 24h prior to H. pylori retest. - D/C Pepto Bismol, sucralfate post-therapy; unnecessary except as bridge. Lifestyle Recommendations: - Reinforce dietary triggers, meal timing, upright positioning post-prandially. Referrals / Coordination of Care: - None unless nonresponsive after eradication and procedure. Follow-Up Plan: - Review sx at next GI FU. (3) Loose stools: Code(s): R19.5 - Other fecal abnormalities Category: Medical Plan: Stable; 2?3 BMs/day, soft/putty, no blood, negative alarm features. low dietary fiber, pending full workup w/ US and colonoscopy. Additional testing: - None until after imaging and colonoscopy. Medications: - N/A Lifestyle Recommendations: - Gradually increase fiber intake: fruits, vegetables, beans, nuts, seeds. - Written dietary handouts provided. Referrals / Coordination of Care: - N/A Follow-Up Plan: - Reassess stool pattern after fiber up-titration and colonoscopy. Plan Follow-up in 8 weeks or sooner as needed Time: I spent a total of 30 minutes on the date of encounter which includes: Preparing to see the patient (reviewed previous documentation, test results and medical history) Performing a medically appropriate exam and/or evaluation Ordering medications, tests, and procedures Documenting clinical information in the health record Orders: Orders H Pylori Breath Test Today A04.8 - Other specified bacterial intestinal infections Medications: New famotidine Take one tablet daily as needed for acid reflux 20 mg PO DAILY PRN 90 tabs 1RF GERD famotidine Take one tablet daily as needed for acid reflux 20 mg PO BEDTIME PRN 90 tabs 1RF GERD famotidine Take one tablet twice daily as needed for acid reflux 20 mg PO BID PRN 90 tabs 1RF GERD bisacodyl Take two tablets at bedtime starting 5 days before colonoscopy 10 mg (2 x 5 mg) PO BEDTIME 10 tabs 0RF Coding Level of Care Code Established Pt Est Pt Level 3 (38582) Patient Type Established Diagnoses Positive H. pylori test A04.8 Gastroesophageal reflux disease, unspecified whether esophagitis present K21.9 Esophagitis presence: esophagitis presence not specified Loose stools R19.5
--- OUTSIDE RECORDS SUMMARY | 2025-03-13 08:38 | XMS_ITS | Clinical Summary ---
Author Organization [facility] [place] [address] [place] [address] [place] [phone] Phone Care Team Providers Care Assistant Analyst Name Role Phone [place] Solitario MD Primary Care Provider [phone] Allergies No known active allergies Medications gabapentin [...] (six) hours if needed for wheezing. Active propranoloL (INDERAL) 10 mg tablet Take 1 tablet (10 mg total) by mouth 2 (two) times a day. 180 each 1 01/21/2025 Active Active Problems Problem Noted Date Diagnosed Date Other chest pain 03/15/2024 Overview (01/21/2025): Patient also updated a stress test on 04/01/2024 that showed no evidence of ischemia by EKG. She did have a rapid increase in heart rate suggesting deconditioning. Assessment & Plan (01/21/2025 9:39 AM EDT): This is mostly resolved. She describes it more of a chest tightness that she has been able to correlate when she is under a lot of stress. Going to give her some propranolol 10 mg p.o. twice daily as needed to utilize. We were able to reference her updated stress test from last year which did not show any ischemic changes. Assessment & Plan (03/15/2024 3:40 PM EST): [...] to do this first available. Palpitations 03/15/2024 Overview (01/21/2025): Patient updated a 30-day ROCT. This was from 05/06/2024 to 06/05/2024. The predominant rhythm was sinus with sinus arrhythmia. Average heart rate was 79 bpm, minimum heart rate was 46 bpm, maximum heart rate was 149. There was occasional ventricular ectopy. The overall burden was 0.2% consisting of singlets couplets and triplets. There were 2 runs of what was likely atrial tachycardia. There were 14 patient triggered symptomatic events that correlated mainly with sinus rhythm or sinus tach in the 100s to 130s. Assessment & Plan (01/21/2025 9:38 AM EDT): Patient is still experiencing palpitations intermittently, but most often she notices them at night. She has been able to correlate this when she is under significant stress. We did referred her where Holter monitor to show that there is no significant arrhythmias during her symptoms. I am going to give her propranolol 10 mg p.o. twice daily as needed that she can utilize if she feels like she is having a particularly stressful day if she notices her heart is going fast. I am also going to update a sleep study and transthoracic echocardiogram for completeness. Assessment & Plan (03/15/2024 3:40 PM EST): [...] 03/15/2024 Rheumatoid arthritis involvi ng multiple sites ([facility] V24, [facility] V28) 03/15/2024 Encounters Date Type Department Care Team Description 01/21/2025 9:10 AM EDT Office Visit [facility] Cardiology [facility] [address] [place] [address] Herve Villaseñor NP Palpitations (Primary Dx); Snoring; Other chest pain 01/17/2025 Telephone [facility] Cardiology [facility] [address] [place] [address] Provider, Not In System from Last 3 Months Family History Medical [...] Sign Reading Time Taken Comments Blood Pressure 110/70 01/21/2025 8:50 AM EDT Pulse 69 01/21/2025 8:50 AM EDT Temperature - - Respiratory Rate - - Oxygen Saturation 95% 01/21/2025 8:50 AM EDT Inhaled Oxygen Concentration - - Weight 137 kg (302 lb) 01/21/2025 8:50 AM EDT Height 170.2 cm (5' 7 ) 01/21/2025 8:50 AM EDT Body Mass Index 47.3 01/21/2025 8:50 AM EDT Plan of Treatment Upcoming Encounters Date Type Department Care Team (Late st Contact Info) Description 04/17/2025 9:00 AM EST Ancillary Procedure [facility] [address] [facility] [address] [place] [address] Health Maintenance Due Date Last Done Comments Breast Cancer Screening 1974 Colorectal Cancer Screening: Colonoscopy 1974 DTaP,Tdap,and Td Vaccines (1 - Tdap) 1993 Hepatitis B Vaccines (1 of 3 - 19+ 3-dose series) 1993 Pneumococcal Vaccine: 50+ Ye ars (1 of 2 - PCV) 1993 Cervical Cancer Screening: P ap Smear 1995 Cholesterol Screening (Lipid Panel) 06/06/2023 HIV Screening 06/06/2023 Hepatitis C Screening 06/06/2023 Social Influencers of Health Screening 06/06/2023 RSV Immunization Adult Patie nts (1 - Risk 50-74 years 1-dose series) 02/23/2024 Zoster Vaccines (1 of 2) 02/23/2024 Depression [...] Procedure Name Priority Date/Time Associated Diagnosis Comments ECG 12-LEAD Routine 01/21/2025 9:03 AM EDT Palpitations from Last 3 Months Results * ECG 12 lead (01/21/2025 9:03 AM EDT) Ventricular Rate ECG 69 BPM GEMUSE Atrial Rate 69 BPM GEMUSE P-R Interval 168 ms GEMUSE QRS Duration 76 ms GEMUSE Q-T Interval 394 ms GEMUSE QTc 422 ms GEMUSE P Wave [place] 36 degrees GEMUSE R [place] 34 degrees GEMUSE T [place] 18 degrees GEMUSE ECG Interpretation Normal sinus rhythm Normal ECG When compared with ECG of 15-MAR-2024 12:59, No significant change was found Confirmed by Khalif GEORGE JAMES ([id number]) on 01/21/2025 12:56:00 PM GEMUSE 01/21/2025 9:03 AM EDT 01/21/2025 12:56 PM EDT us Herve Villaseñor NP ECG ORDERABLES Final Result GEMUSE from Last 3 Months Insurance [facility] [place] [address] Care Teams Assistant Analyst Relationship Specialty Start Date End Date [place] Solitario MD [address] [address] [facility] [address] [place] [address] PCP - General Internal Medicine 03/08/24
== END 2025-03-13 08:58 | disposition home or self-care (01) ==
LOC: HO.HGI 08:18
PROVIDERS: PCP Internal Medicine; Visit Provider Nurse Practitioner Family
DX: A04.8 Other specified bacterial intestinal infections (principal); K21.9 Gastro-esophageal reflux disease without esophagitis; R19.5 Other fecal abnormalities
CPT/HCPCS: 99213

== ENCOUNTER 2025-03-13 08:17 | Outpatient (REF) | payer OTHER, SELFPAY ==
[2025-03-13 10:26] LABS: Anion Gap 9 (12-20); Blood Urea Nitrogen 12 mg/dL (9-16); Calcium 9.0 mg/dL (8.4-10.2); Carbon Dioxide 28 mmol/L (22-29); Chloride 109 mmol/L (96-108); Estimated Glomerular Filt Rate > 60; Potassium 4.1 mmol/L (3.3-5.1); Sodium 142 mmol/L (135-145)
== END 2025-03-13 08:18 | disposition home or self-care (01) ==
LOC: HO.LAB 08:17
PROVIDERS: Absent Provider Internal Medicine Hypertension Specialist; PCP Internal Medicine; Visit Provider Nurse Practitioner Family
DX: A04.8 Other specified bacterial intestinal infections (principal); K21.9 Gastro-esophageal reflux disease without esophagitis; R19.5 Other fecal abnormalities; Q61.5 Medullary cystic kidney
CPT/HCPCS: 36415; 80048; 99212

== ENCOUNTER 2025-03-21 11:51 | Outpatient (AMB) | payer OTHER, SELFPAY ==
[2025-03-21 11:54] VITALS: BP 130/76; PULSE 96; O2SAT 96; BMI 46.1
--- NOTE | 2025-03-21 11:54 | HO.NEPHOV ---
Vital Signs 03/21/25 11:54 Height 5 ft 8 in Weight 303 lb BMI 46.1 BP 130/76 Blood Pressure Location Rt brachial Position Sitting Pulse 96 Pulse Source Pulse Oximeter Pulse Oximetry (%) 96 Oxygen Delivery Method Room Air Intake Visit Reasons: 6 mo f/u r/s 03/05 [facility] Information Systems Architect Required: No Accompanied by: Self / Same As Patient Allergies acetaminophen (From VICODIN) Allergy (Unknown, Verified 03/21/25 11:55) UNKNOWN hydrocodone (From VICODIN) Allergy (Unknown, Verified 03/21/25 11:55) UNKNOWN Medication List - Last Reconciled 03/21/25 by Robbie Calles MD albuterol sulfate 90 mcg/actuation (Ventolin HFA) inhalation amoxicillin-pot clavulanate 875-125 mg 1 tab PO BID bisacodyl 5 mg PO BID bisacodyl 10 mg (2 x 5 mg) PO BEDTIME cholecalciferol (vitamin D3) 50 mcg PO DAILY escitalopram oxalate 5 mg PO DAILY famotidine 20 mg PO BID PRN gabapentin 300 mg PO BID hydroxyzine pamoate 25 mg PO TID PRN Lactobacillus rhamnosus GG (Culturelle) 1 cap PO DAILY nitroglycerin 0.4 mg sublingual PRN propranolol 10 mg PO BID HPI Comments Details: The patient is a 50-year-old female presenting with muscle pain, increased urination, and follow-up for kidney stone management. The patient reports experiencing muscle pain and increased urination, which she has not been taking any medication for. She has a history of nephrolithiasis, having passed a kidney stone approximately one month ago, which was associated with severe pain and elevated blood pressure. The patient has been advised to increase her water intake to help manage her kidney condition. Her previous kidney function tests and electrolytes were reported as normal, and she has seen a urologist who confirmed that everything was fine. The patient has a history of hypertension, which was exacerbated during the kidney stone episode, requiring her to take a heart pill. She has a history of arthritis, which she describes as severe, affecting her bones and causing them to click. The patient is cautious about using ibuprofen due to potential kidney damage and prefers to use Tylenol for pain management. [facility] Medical History (Updated 03/13/25 @ 09:04 by Hue Jarrett CNP) Loose stools Positive H. pylori test Abdominal pain Acid reflux Colon cancer screening Family History Mother CKD (chronic kidney disease) Diabetes Hypertension Sister Diabetes Hypertension Physical Exam Vital Signs: Last Vital Signs Pulse 96 03/21/25 11:54 BP 130/76 03/21/25 11:54 Pulse Ox 96 03/21/25 11:54 Oxygen Delivery Method Room Air 03/21/25 11:54 BMI result Body Mass Index 46.1 Comfortable Neck supple no JVD. Lungs entry equal no rales. Heart S1-S2 heard no gallop or rub. Abdomen soft nontender. Neuro alert awake oriented. No asterixis. Extremities no edema. 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 Nephrolithiasis - Plan to perform a follow-up ultrasound to evaluate kidney status and rule out any new stones. - Repeat 24-hour urine collection to assess for calcium, oxalate, and citric acid levels. - Encourage increased water intake to prevent stone formation. 2. Hypertension - Monitor blood pressure regularly,. - Continue current antihypertensive medication as needed. Orders: Orders Sodium, 24Hr Urine Group Today Q61.5 - Medullary cystic kidney Oxalate, 24 Hr Today Q61.5 - Medullary cystic kidney US renal BI Today Q61.5 - Medullary cystic kidney Creatinine, 24 Hr Group Today Q61.5 - Medullary cystic kidney Calcium, 24 Hr Ur Today Q61.5 - Medullary cystic kidney Uric Acid, 24Hr Urine Group Today Q61.5 - Medullary cystic kidney Citric Acid 24hr Urine Today Q61.5 - Medullary cystic kidney Patient Instructions: - Increase water intake to help prevent kidney stones. - Use Tylenol for pain instead of ibuprofen to protect your kidneys. - Monitor your blood pressure regularly and take your medication as prescribed. - Complete the 24-hour urine collection as instructed before your next visit. - Schedule and attend the follow-up ultrasound appointment. Coding Level of Care Code Est Pt Level 4 (67407) Diagnoses Medullary sponge kidney Q61.5
== END 2025-03-21 12:07 | disposition home or self-care (01) ==
LOC: HO.HKA 11:51
PROVIDERS: PCP Internal Medicine; Visit Provider Internal Medicine Hypertension Specialist
DX: Q61.5 Medullary cystic kidney (principal)
CPT/HCPCS: 99214

== ENCOUNTER → 2025-03-21 11:51 | Outpatient (BNVA) | payer OTHER, SELFPAY | PROVIDERS: PCP Internal Medicine; Visit Provider Internal Medicine Hypertension Specialist | DX: Q61.5 Medullary cystic kidney (principal) | CPT/HCPCS: 99212 ==

== ENCOUNTER 2025-03-26 12:45 | Outpatient (REF) | payer OTHER, SELFPAY ==
[2025-03-27 09:04] LABS: HBsAGNum1 0.36 S/CO (0.00-0.99); HIV Num 1 0.06 S/CO (0.00-0.99); Hepatitis B Surface Antigen Negative (Negative); ~HepC Num1 0.10 S/CO (0.00-0.79); ~Hepatitis C Antibody Nonreactive (Nonreactive)
[2025-03-27 09:27] LABS: Syphilis Screen Nonreactive (Nonreactive)
== END 2025-03-26 12:46 | disposition home or self-care (01) ==
LOC: HO.HHCL 12:45
PROVIDERS: PCP Internal Medicine; Referring Provider Internal Medicine Hypertension Specialist; Visit Provider Advanced Practice Midwife
DX: Z01.419 Encounter for gynecological examination (general) (routine) without abnormal findings (principal); N95.1 Menopausal and female climacteric states; R10.20 Pelvic and perineal pain unspecified side; E66.01 Morbid (severe) obesity due to excess calories; F17.210 Nicotine dependence, cigarettes, uncomplicated; Z12.31 Encounter for screening mammogram for malignant neoplasm of breast; Z12.39 Encounter for other screening for malignant neoplasm of breast; Z11.59 Encounter for screening for other viral diseases; Z11.4 Encounter for screening for human immunodeficiency virus [HIV]; Z68.42 Body mass index [BMI] 45.0-49.9, adult; Z20.2 Contact with and (suspected) exposure to infections with a predominantly sexual mode of transmission
CPT/HCPCS: 36415; 86780; 86803; 87340; 87389; 99386

== ENCOUNTER 2025-03-26 12:45 | Outpatient (AMB) | payer OTHER, SELFPAY ==
--- NOTE | 2025-03-26 13:34 | MHC.OFFVIS ---
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 Required: No Information Interpreted: non-clinical & clinical Wine Consultant: Wine Consultant Present (Juliane) Accompanied by: Self / Same As Patient Allergies acetaminophen (From VICODIN) Allergy (Unknown, Verified 03/26/25 13:40) UNKNOWN hydrocodone (From VICODIN) Allergy (Unknown, Verified 03/26/25 13:40) UNKNOWN Medication List - Last Reconciled 03/26/25 by Camryn Bailey LPN albuterol sulfate 90 mcg/actuation (Ventolin HFA) inhalation amoxicillin-pot clavulanate 875-125 mg 1 tab PO BID bisacodyl 5 mg PO BID bisacodyl 10 mg (2 x 5 mg) PO BEDTIME cholecalciferol (vitamin D3) 50 mcg PO DAILY escitalopram oxalate 5 mg PO DAILY famotidine 20 mg PO BID PRN gabapentin 300 mg PO BID hydroxyzine pamoate 25 mg PO TID PRN Lactobacillus rhamnosus GG (Culturelle) 1 cap PO DAILY nitroglycerin 0.4 mg sublingual PRN propranolol 10 mg PO BID Is last menstrual period known: Yes Last menstrual period: 03/03/25 (irregular with large blood clots) Do you need a note to return to daycare/school/sports/work: No HPI HPI perimenopausal: Details: 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 She has been very busy taking care of her kids and her grand kids and working and taking care of others. She is feeling hot flashes and various menopausal symptoms and has trouble losing weight she is a smoker she is smokes about 10 cigarettes a day she has tried to quit but it has been difficult. She does have heart issues and kidney issues and she is awaiting a colonoscopy and GI workup. She was without insurance for a while so she did not have as good access to care but she is trying to get back in she sees somebody at [place] for primary care and she has an appointment with them next week. She does not know when she last had fasting blood work. She has struggled to lose weight and that is been very difficult and she thinks that Ozempic would really help her. She was given something to drink to help boost her metabolism however with her heart issue she did not think that that was great. She is not sexually active and has not been for a long time. She still would like to be checked because it has been so long. Her periods are very heavy but they are regular she sometimes gets pains she imagines that are in her ovaries so she would like to get that checked as well. she has never had a mammogram. She recognized me as somebody who took care of her (and I recognized her from 1988- . [facility] Medical History Loose stools Positive H. pylori test Abdominal pain Acid reflux Colon cancer screening Family History Mother CKD (chronic kidney disease) Diabetes Hypertension Sister Diabetes Hypertension Social History (Updated 03/26/25 @ 13:44 by Camryn Bailey LPN) Housing: Apartment Comment: occaisonal Patient Tobacco Use Status: Current everyday Tobacco user Years Smoked: 30 plus years Female Reproductive History Menstrual Age of Menarche: 10 Date of last menstrual period: 03/03/25 (irregular with large blood clots) control method: abstinence Total pregnancies: 6 Number of Living Children: 3 Ab induced: 1 Ab spontaneous: 2 Date of last pap smear: 03/26/11 History of abnormal pap smear: No (have had at [facility]) History of abnormal mammogram: No (never had mammagram) Physical Exam Vital Signs: Last Vital Signs BP 108/68 03/26/25 13:35 BMI result Body Mass Index 45.9 Const General: healthy appearing, comfortable, no acute distress, well developed and alert Nutritional Appearance: average body habitus Orientation/consciousness: patient oriented x3 Limitations: no limitations HEENT Head: Yes normocephalic Neck Neck: Yes normal visual inspection Chest Chest palpation & inspection: normal inspection of the chest Breast/axilla inspection: normal inspection of the breasts and normal inspection of the axillae Breast/axilla palpation: normal palpation of the breasts and normal palpation of the axillae Resp Effort & Inspection: normal respiratory effort GI Inspection: Yes normal to inspection, No Abdominal wall edema and No distended Palpation (GI): Soft to palpation and nontender Other: External exam within normal limits vagina is pink and moist healthy appearing normal appearing scant mucus cervix multiparous deep in pelvis and difficult to reach needed long large Graves speculum. Cervix appears pink and healthy cervix mobile nontender uterus mobile nontender adnexa nontender good tone with Kegel. No current evidence of atrophic changes. General: Yes bladder normal to palpation External Female Exam: normal external appearance and normal appearance of the urethra Speculum Exam - Vagina: normal appearance of the vagina, normal palpation and normal vaginal discharge Speculum Exam - Cervix: normal appearance of the cervix, normal palpation and nontender Bimanual exam- vagina & uterus: normal bimanual exam, normal palpation, uterine size normal, bladder normal to palpation, consistency normal, normal palpation, uterine mobility normal, uterine shape normal, No Cervical tenderness present, non-tender and no cervical motion tenderness Bimanual Exam- Adnexa, other: normal adnexae, no masses, normal and No adnexal tenderness Neuro General: patient oriented x3 Assessment & Plan Assessment & Plan (1) Pelvic pain: Code(s): R10.20 - Pelvic and perineal pain unspecified side Category: Medical (2) Women's annual routine gynecological examination: Code(s): Z01.419 - Encounter for gynecological examination (general) (routine) without abnormal findings Category: Medical (3) Pap smear for cervical cancer screening: Code(s): Z12.4 - Encounter for screening for malignant neoplasm of cervix Category: Medical (4) Encounter for screening examination for sexually transmitted disease: Code(s): Z11.3 - Encounter for screening for infections with a predominantly sexual mode of transmission Category: Medical (5) Perimenopause: Code(s): N95.1 - Menopausal and female climacteric states Category: Medical (6) Obesity, morbid, BMI 40.0-49.9: Code(s): E66.01 - Morbid (severe) obesity due to excess calories Category: Medical (7) Cigarette smoker motivated to quit: Code(s): F17.210 - Nicotine dependence, cigarettes, uncomplicated Category: Social Hx Plan 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 She has been very busy taking care of her kids and her grand kids and working and taking care of others. She is feeling hot flashes and various menopausal symptoms and has trouble losing weight she is a smoker she is smokes about 10 cigarettes a day she has tried to quit but it has been difficult. She does have heart issues and kidney issues and she is awaiting a colonoscopy and GI workup. She was without insurance for a while so she did not have as good access to care but she is trying to get back in she sees somebody at [place] for primary care and she has an appointment with them next week. She does not know when she last had fasting blood work. She has struggled to lose weight and that is been very difficult and she thinks that Ozempic would really help her. She was given something to drink to help boost her metabolism however with her heart issue she did not think that that was great. She is not sexually active and has not been for a long time. She still would like to be checked because it has been so long. Her periods are very heavy but they are regular she sometimes gets pains she imagines that are in her ovaries so she would like to get that checked as well. she has never had a mammogram. She recognized me as somebody who took care of her (and I recognized her from 1988- . -----Discussed in this visit the following: healthy balanced diet, regular and consistent exercise, getting recommended health screens, doing the best she can for her particular health concerns, kegel exercises, pap smear screening and followup recommendations, mammography screening and SBE, normal changes in cycles in her life stage--- . I am ordering a mammogram for her I am also ordering a pelvic ultrasound and we will have a follow-up visit I am ordering lab work for STD screens. She is going to be seeing her primary care provider next week and we will be discussing her overall health and whether not there is any way she would qualify for any of the GLP ones to help her with weight loss she personally is interested in Ozempic and thinks it would help her very much. Discussed ways she can add in gentle exercise with the out straining her heart as she does have cardiac concerns and her seismology teacher has given her instructions about how to approach treadmill etc. discussed that weight loss would definitely improve things for her and she feels that very strongly she would also be interested in a property and equipment clerk and so I suggested she speak to her primary about that next week as well. Discussed making this a new start now that she is trying to access care for all of her health concerns and suggested dancing with her grand children to her music as a way to rev up her metabolism in a gentle way and additionally she notes that she does not smoke when there around and she maintains her house smoke free for that reason. She has sciatica the can be quite challenging but she does exercises and stretches with a ball and she is following all of what she has been suggested and she even showed me some of her exercises that she does routinely. Orders: Orders US pelvic and transvaginal Today R10.20 - Pelvic and perineal pain unspecified side Hepatitis C Antibody Today R10.20 - Pelvic and perineal pain unspecified side, Z11.3 - Encounter for screening for infections with a predominantly sexual mode of transmission Hepatitis B Surface Antigen Today R10.20 - Pelvic and perineal pain unspecified side, Z11.3 - Encounter for screening for infections with a predominantly sexual mode of transmission HIV Ab/Ag Today R10.20 - Pelvic and perineal pain unspecified side, Z11.3 - Encounter for screening for infections with a predominantly sexual mode of transmission Syphilis Screen Today R10.20 - Pelvic and perineal pain unspecified side, Z11.3 - Encounter for screening for infections with a predominantly sexual mode of transmission MM tomosynthesis screening BI Today Z12.31 - Encounter for screening mammogram for malignant neoplasm of breast, Z12.39 - Encounter for other screening for malignant neoplasm of breast Coding Level of Care Code New Pt Prev Care 40-64y(31586) Diagnoses Pelvic pain R10.20 Women's annual routine gynecological examination Z01.419 Pap smear for cervical cancer screening Z12.4 Encounter for screening examination for sexually transmitted disease Z11.3 Perimenopause N95.1 Obesity, morbid, BMI 40.0-49.9 E66.01 Cigarette smoker motivated to quit F17.210
[2025-03-26 13:35] VITALS: BP 108/68; BMI 45.9
--- OUTSIDE RECORDS SUMMARY | 2025-03-27 00:17 | XMS_ITS | Encounter Summary ---
Author Organization [facility] Address [address] [place] [address] Care Team Providers Care Certified Detention Deputy Name Role Phone [place] Solitario MD Primary Care Provider [phone] Reason for Visit * Reason Onset Date Comments Procedure 03/13/2025 Upper endoscopy and colonoscopy pre-op Encounter Details Date Type Department Care Team (Late st Contact Info) Description 03/13/2025 Telephone [facility] - [facility] [address] [facility] [address] [place] [phone] Herve Villaseñor NP [address] [place] [address] [place] [phone] Social History Tobacco Use Types Packs/Day Years [...] as of this encounter Progress Notes * Elis Lopez - 03/26/2025 11:39 AM EST Spoke with the patient and scheduled for 04/07/25 with Herve Villaseñor. * Mayuri Del Real MA - 03/26/2025 7:38 AM EST Please schedule patient for pre -op with Herve. * Herve Villaseñor NP - 03/25/2025 11:21 AM EST If she needs preop clearance then she will have to come into the office. * Mayuri Del Real MA - 03/24/2025 12:37 PM EST Patient was just seen 01/21/25 she will need pre-op clearance for an endoscopy can the note be addend or does the patient need to be seen again? * Roxie Jiménez MA - 03/13/2025 10:10 AM EST Mary Alice from [facility] called. They are trying to schedule the patient for an upper endoscopy and colonoscopy. Per the provider he will not schedule until the patient has clearance. Please schedule and advise If there are any questions please contact Mary Alice [phone] documented in this encounter Plan of Treatment Upcoming Encounters Date Type Department Care Team (Late st Contact Info) Description 04/07/2025 8:10 AM EST Consult [facility] - [facility] [address] [facility] [address] [place] [phone] Herve Villaseñor NP [address] [place] [address] [address] [place] [phone] 04/17/2025 9:00 AM EST Ancillary Procedure [facility] - [facility] [address] [place] [phone] documented as of this encounter Visit Diagnoses Not on filedocumented in this encounter Care Teams Certified Detention Deputy Relationship Specialty Start Date End Date Florida Solitario MD [address] [place] [address] [address] [place] [phone] PCP - General Internal Medicine 03/08/24 documented as of this encounter
--- OUTSIDE RECORDS SUMMARY | 2025-03-27 00:18 | XMS_ITS | Clinical Summary ---
Author Organization [facility] [address] [place] [address] [place] [phone] Phone Care Team Providers Care Maintenance Department Technician Name Role Phone Florida Solitario MD Primary Care Provider [phone] Allergies No known active allergies Medications gabapentin [...] 03/15/2024 Rheumatoid arthritis involvi ng multiple sites ([facility] V24, [facility] V28) 03/15/2024 Encounters Date Type Department Care Team Description 03/13/2025 Telephone [facility] - [address] [place] [address] Herve Villaseñor NP 01/21/2025 9:10 AM EDT Office Visit [facility] - [address] [place] [address] Herve Villaseñor NP Palpitations (Primary Dx); Snoring; Other chest pain 01/17/2025 Telephone [facility] - [facility] [address] [facility] [address] [place] [address] Provider, Not In System from [...] Info) Description 04/07/2025 8:10 AM EST Consult [facility] - [facility] [address] [facility] [address] [place] [address] Herve Villaseñor NP [address] [place] [address] [address] [place] [phone] 04/17/2025 9:00 AM EST Ancillary Procedure [facility] - [facility] [address] [facility] [address] [place] [phone] Health Maintenance Due Date Last Done Comments [...] Depression Screening 05/08/2024 COVID-19 Vaccine (1 - 2024-2 6 season) 2025 Influenza Vaccine (#1) 2025 HIB [...] GEMUSE QTc 422 ms GEMUSE P Wave [place] 36 degrees GEMUSE R [place] 34 degrees GEMUSE T [place] 18 degrees GEMUSE ECG Interpretation Normal sinus rhythm Normal ECG When compared with ECG of 15-MAR-2024 12:59, No significant change was found Confirmed by Khalif GEORGE JAMES ([id number]) on 01/21/2025 12:56:00 PM GEMUSE 01/21/2025 9:03 AM EDT 01/21/2025 12:56 PM EDT us Herve Villaseñor NP ECG ORDERABLES Final Result GEMUSE from Last 3 Months Insurance [facility] Care Teams Maintenance Department Technician Relationship Specialty Start Date End Date Florida Solitario MD [address] [place] [phone] PCP - General Internal Medicine 03/08/24
== END 2025-03-26 15:02 | disposition home or self-care (01) ==
LOC: HO.HWSM 12:45
PROVIDERS: PCP Internal Medicine; Visit Provider Advanced Practice Midwife
DX: Z01.419 Encounter for gynecological examination (general) (routine) without abnormal findings (principal); R10.20 Pelvic and perineal pain unspecified side; Z12.4 Encounter for screening for malignant neoplasm of cervix; Z11.3 Encounter for screening for infections with a predominantly sexual mode of transmission; N95.1 Menopausal and female climacteric states; E66.01 Morbid (severe) obesity due to excess calories; F17.210 Nicotine dependence, cigarettes, uncomplicated
CPT/HCPCS: 99386; 99459

== ENCOUNTER 2025-03-26 16:31 | Outpatient (REF) | payer OTHER, SELFPAY ==
[2025-03-27 12:37] LABS: Bacterial Vaginosis PCR NEGATIVE (Negative); Candida Group PCR DETECTED (Not Detect); Candida glab krusei PCR NOT DETECTED (Not Detect); Trichomonas vaginalis PCR NOT DETECTED (Not Detect)
[2025-03-27 13:07] LABS: CT PCR NOT DETECTED (Not Detect.); NG PCR NOT DETECTED (Not Detect.)
== END 2025-03-26 16:32 | disposition home or self-care (01) ==
LOC: HO.LNP 16:31
PROVIDERS: Visit Provider Advanced Practice Midwife
DX: Z01.419 Encounter for gynecological examination (general) (routine) without abnormal findings (principal); Z11.51 Encounter for screening for human papillomavirus (HPV); Z20.2 Contact with and (suspected) exposure to infections with a predominantly sexual mode of transmission
CPT/HCPCS: 81515; 87491; 87591; 87626; 88175

== ENCOUNTER 2025-03-28 08:18 | Outpatient (AMB) | payer OTHER, SELFPAY ==
--- OUTSIDE RECORDS SUMMARY | 2025-03-28 08:20 | XMS_ITS | Clinical Summary ---
Author Organization [facility] [address] [place] [address] [place] [phone] Phone Care Team Providers Care Special Education Bus Driver Name Role Phone Florida Solitario MD Primary Care Provider [phone] Allergies No known active allergies Medications gabapentin [...] arthritis involvi ng multiple sites ([facility] V24, [facility] V28) 03/15/2024 Encounters Date Type Department Care Team Description 03/13/2025 Telephone [facility] - [address] [place] [address] Herve Villaseñor NP 01/21/2025 9:10 AM EDT Office Visit [facility] - [address] [place] [address] Herve Villaseñor NP Palpitations (Primary Dx); Snoring; Other chest pain 01/17/2025 Telephone [facility] - [facility] [address] [facility] [address] [place] [address] Provider, Not In System from [...] Info) Description 04/07/2025 8:10 AM EST Consult [facility] - [facility] [address] [facility] [address] [place] [address] Herve Villaseñor NP [address] [place] [address] [address] [place] [phone] 04/17/2025 9:00 AM EST Ancillary Procedure [facility] - [facility] [address] [facility] [address] [place] [phone] Health Maintenance Due Date Last Done Comments [...] GEMUSE QTc 422 ms GEMUSE P Wave [place] 36 degrees GEMUSE R [place] 34 degrees GEMUSE T [place] 18 degrees GEMUSE ECG Interpretation Normal sinus rhythm Normal ECG When compared with ECG of 15-MAR-2024 12:59, No significant change was found Confirmed by Khalif GEORGE JAMES ([id number]) on 01/21/2025 12:56:00 PM GEMUSE 01/21/2025 9:03 AM EDT 01/21/2025 12:56 PM EDT us Herve Villaseñor NP ECG ORDERABLES Final Result GEMUSE from Last 3 Months Insurance [employer] Care Teams Special Education Bus Driver Relationship Specialty Start Date End Date Florida Solitario MD [address] [place] [phone] PCP - General Internal Medicine 03/08/24
--- OUTSIDE RECORDS SUMMARY | 2025-03-28 08:20 | XMS_ITS | Encounter Summary ---
Author Organization [facility] Address [address] [place] [address] Care Team Providers Care Crap Shooter Name Role Phone Florida Solitario MD Primary Care Provider [phone] Reason for Visit * Reason Onset Date Comments Procedure 03/13/2025 Upper endoscopy and colonoscopy pre-op Encounter Details Date Type Department Care Team (Late st Contact Info) Description 03/13/2025 Telephone [facility] - [facility] [address] [facility] [address] [place] [phone] Herve Villaseñor NP [address] [place] [address] [place] [phone] Social History Tobacco Use Types Packs/Day Years [...] 03/13/2025 10:10 AM EST Mary Alice from [facility] called. They are trying to schedule the patient for an upper endoscopy and colonoscopy. Per the provider he will not schedule until the patient has clearance. Please schedule and advise If there are any questions please contact Mary Alice [phone] documented in this encounter Plan of Treatment Upcoming Encounters Date Type Department Care Team (Late st Contact Info) Description 04/07/2025 8:10 AM EST Consult [facility] - [facility] [address] [facility] [address] [place] [phone] Herve Villaseñor NP [address] [place] [address] Dr [address] [place] [phone] 04/17/2025 9:00 AM EST Ancillary Procedure [facility] - [facility] [address] [place] [phone] documented as of this encounter Visit Diagnoses Not on filedocumented in this encounter Care Teams Crap Shooter Relationship Specialty Start Date End Date Florida Solitario MD [address] [place] [address] [address] [place] [phone] PCP - General Internal Medicine 03/08/24 documented as of this encounter
--- NOTE | 2025-03-28 09:09 | AM.OFFVISNUR ---
Intake Visit Reasons: retest H Pylori Intake Note: Patient presents for collection of?H Pylori?breath test. Patient has been fasting for 1 hour (nothing to eat, drink, no chewing gum or smoking) has not taken any antacid medication for at least 2 weeks and has no allergies to artificial sweeteners.?? Allergies acetaminophen (From VICODIN) Allergy (Unknown, Verified 03/26/25 13:40) UNKNOWN hydrocodone (From VICODIN) Allergy (Unknown, Verified 03/26/25 13:40) UNKNOWN Assessment & Plan Assessment & Plan (1) Positive H. pylori test: Code(s): A04.8 - Other specified bacterial intestinal infections Category: Medical Plan Patient presents for collection of?H Pylori?breath test. Patient has been fasting for 1 hour (nothing to eat, drink, no chewing gum or smoking) has not taken any antacid medication for at least 2 weeks and has no allergies to artificial sweeteners.???This test checks for an overgrowth of bacteria in your stomach. We all have bacteria but some may have more than others. It is treatable. if the test comes back negative there is nothing else to do. If the test result is positive we will treat you with 2 antibiotics and a medication to decrease the acid in your stomach (PPI) for 2 weeks. Two weeks after you have completed the treatment we will retest you to make sure the overgrowth has resolved. Patient Instructions: Process for specimen collection and reason for testing was explained to the patient. Specimen collection. Patient instructed to take a deep breath and then exhale into the blue bag, filling it up as much as possible. Patient instructed to drink a mixture of water and the artificial sweetener with a straw. A 15 minute wait period was observed. Patient instructed to take a deep breath and then exhale into the pink bag, filling it up as much as possible.?? Coding Level of Care Code Est Pt Level 1 (47487) Diagnoses Positive H. pylori test A04.8
== END 2025-03-28 09:10 | disposition home or self-care (01) ==
LOC: HO.HGI 08:18
PROVIDERS: PCP Internal Medicine; Visit Provider Nurse Practitioner Family
DX: A04.8 Other specified bacterial intestinal infections (principal)

== ENCOUNTER → 2025-03-28 08:18 | Outpatient (BNVA) | payer OTHER, SELFPAY | PROVIDERS: PCP Internal Medicine; Visit Provider Nurse Practitioner Family | DX: A04.8 Other specified bacterial intestinal infections (principal) | CPT/HCPCS: 99211 ==

== ENCOUNTER 2025-03-28 09:24 | Outpatient (REF) | payer OTHER, SELFPAY ==
--- OUTSIDE RECORDS SUMMARY | 2025-03-31 20:24 | XMS_ITS | Clinical Summary ---
Author Organization [facility] [address] [place] [address] [place] [phone] Phone Care Team Providers Care Consumer Loan Specialist Name Role Phone [place] Solitario MD Primary Care Provider [phone] Allergies No known active allergies Medications gabapentin [...] 03/15/2024 Rheumatoid arthritis involvi ng multiple sites ([facility] V24, [facility] V28) 03/15/2024 Encounters Date Type Department Care Team Description 03/13/2025 Telephone [facility] - [address] [place] [address] Herve Villaseñor NP 01/21/2025 9:10 AM EDT Office Visit [facility] - [address] [place] [address] Herve Villaseñor NP Palpitations (Primary Dx); Snoring; Other chest pain 01/17/2025 Telephone [facility] - [facility] [address] [facility] [place] [address] Provider, Not In System from [...] Info) Description 04/07/2025 8:10 AM EST Consult [facility] - [facility] [address] [facility] [address] [place] [address] Herve Villaseñor NP [address] [place] [address] [address] [place] [phone] 04/17/2025 9:00 AM EST Ancillary Procedure [facility] - [facility] [address] [facility] [address] [place] [phone] Health Maintenance Due Date Last Done Comments [...] GEMUSE QTc 422 ms GEMUSE P Wave [place] 36 degrees GEMUSE R [place] 34 degrees GEMUSE T [place] 18 degrees GEMUSE ECG Interpretation Normal sinus rhythm Normal ECG When compared with ECG of 15-MAR-2024 12:59, No significant change was found Confirmed by Khalif GEORGE JAMES ([id number]) on 01/21/2025 12:56:00 PM GEMUSE 01/21/2025 9:03 AM EDT 01/21/2025 12:56 PM EDT us Herve Villaseñor NP ECG ORDERABLES Final Result GEMUSE from Last 3 Months Insurance [facility] Care Teams Consumer Loan Specialist Relationship Specialty Start Date End Date Florida Solitario MD [address] [place] [phone] PCP - General Internal Medicine 03/08/24
--- OUTSIDE RECORDS SUMMARY | 2025-03-31 20:24 | XMS_ITS | Encounter Summary ---
Author Organization [facility] Address [address] [place] [address] Care Team Providers Care Beauty Shop Manager Name Role Phone [place] Solitario MD Primary Care Provider [phone] Reason for Visit * Reason Onset Date Comments Procedure 03/13/2025 Upper endoscopy and colonoscopy pre-op Encounter Details Date Type Department Care Team (Late st Contact Info) Description 03/13/2025 Telephone [facility] - [facility] [address] [facility] [address] [place] [phone] Herve Villaseñor NP [address] [place] [address] [place] [phone] Social History Tobacco Use Types Packs/Day Years [...] 03/13/2025 10:10 AM EST Mary Alice from [facility] called. They are trying to schedule the patient for an upper endoscopy and colonoscopy. Per the provider he will not schedule until the patient has clearance. Please schedule and advise If there are any questions please contact Mary Alice [phone] documented in this encounter Plan of Treatment Upcoming Encounters Date Type Department Care Team (Late st Contact Info) Description 04/07/2025 8:10 AM EST Consult [facility] - [facility] [address] [facility] [address] [place] [phone] Herve Villaseñor NP [address] [place] [address] [address] [place] [phone] 04/17/2025 9:00 AM EST Ancillary Procedure [facility] - [facility] [address] [place] [phone] documented as of this encounter Visit Diagnoses Not on filedocumented in this encounter Care Teams Beauty Shop Manager Relationship Specialty Start Date End Date Florida Solitario MD [address] [place] [address] [address] [place] [phone] PCP - General Internal Medicine 03/08/24 documented as of this encounter
== END 2025-03-28 09:25 | disposition home or self-care (01) ==
LOC: HO.LNP 09:24
PROVIDERS: Visit Provider Nurse Practitioner Family
DX: A04.8 Other specified bacterial intestinal infections (principal)
CPT/HCPCS: 83013

== ENCOUNTER 2025-04-24 11:18 | Outpatient (AMB) | payer OTHER, SELFPAY ==
[2025-04-24 11:36] VITALS: BP 104/68; PULSE 105; O2SAT 96
--- NOTE | 2025-04-24 11:36 | HO.NEPHOV ---
Vital Signs 04/24/25 11:36 Height 5 ft 8 in BP 104/68 Blood Pressure Location Rt brachial Position Sitting Pulse 105 H Pulse Source Pulse Oximeter Pulse Oximetry (%) 96 Oxygen Delivery Method Room Air Intake Visit Reasons: 4wk f/u w/labs Account Services Specialist Required: No Accompanied by: Self / Same As Patient Allergies acetaminophen (From VICODIN) Allergy (Unknown, Verified 04/24/25 11:38) UNKNOWN hydrocodone (From VICODIN) Allergy (Unknown, Verified 04/24/25 11:38) UNKNOWN Medication List - Last Reconciled 04/24/25 by Robbie Calles MD albuterol sulfate 90 mcg/actuation (Ventolin HFA) inhalation amoxicillin-pot clavulanate 875-125 mg 1 tab PO BID bisacodyl 5 mg PO BID bisacodyl 10 mg (2 x 5 mg) PO BEDTIME cholecalciferol (vitamin D3) 50 mcg PO DAILY duloxetine 30 mg PO DAILY escitalopram oxalate 5 mg PO DAILY famotidine 20 mg PO BID PRN gabapentin 300 mg PO BID hydroxyzine pamoate 25 mg PO TID PRN Lactobacillus rhamnosus GG (Culturelle) 1 cap PO DAILY miconazole nitrate 2% (Monistat 7) 1 appful vaginal BEDTIME 7 days nitroglycerin 0.4 mg sublingual PRN wxivnqqalw-iqjcwustr-aajzmmspb 10-250-12.5 mg (Talicia) 4 caps (4 x 10-250-12.5 mg) PO Q8H 14 days propranolol 10 mg PO BID HPI Comments Details: History of Present Illness The patient is a 50-year-old female presenting for follow-up of medullary sponge kidney and evaluation of new-onset left flank pain. She has a known history of medullary sponge kidney and reports a recent change in her symptoms, with pain now localizing to her left side, whereas it was previously on her right. She describes the pain as intense, particularly when lying on her side. Associated with this, she reports feeling generally unwell and lacking energy. A recent urine collection was deferred because she was menstruating with significant blood clots. Her last renal sonogram was in July of this year, and recent labs showed normal kidney function with a BUN of 12 and creatinine of 0.73. Her medications were reviewed, and she was recently prescribed duloxetine for anxiety but has not yet started it. She has discontinued gabapentin. She recently completed courses of amoxicillin for an ear infection and another unspecified antibiotic. She affirms continued use of propranolol, vitamin D, and an albuterol inhaler. She reports having as-needed prescriptions for hydroxyzine and bisacodyl, noting she is not currently constipated. The patient expresses apprehension about taking medications. Results - Labs: Recent labs show normal kidney function with a BUN of 12 and creatinine of 0.73. - Imaging: A renal sonogram was performed in July. [facility] Medical History Loose stools Positive H. pylori test Abdominal pain Acid reflux Colon cancer screening Family History Mother CKD (chronic kidney disease) Diabetes Hypertension Sister Diabetes Hypertension Social History Housing: Apartment Comment: occaisonal Patient Tobacco Use Status: Current everyday Tobacco user Years Smoked: 30 plus years Female Reproductive History Menstrual Age of Menarche: 10 Physical Exam Exam Exam: Physical Exam General: Awake. Comfortable. HENT: Neck supple. Mucosa moist. Pulmonary: Lungs aeration equal. No rales. Cardiology: Heart S1-S2 heard. No gallop. Abdomen: Soft. Non tender. Bowel sounds normal. Neurologic: No involuntary movements. No myoclonus. Extremities: No edema. No rash. Vital Signs: Last Vital Signs Pulse 105 H 04/24/25 11:36 BP 104/68 04/24/25 11:36 Pulse Ox 96 04/24/25 11:36 Oxygen Delivery Method Room Air 04/24/25 11:36 Results Reviewed Nephrology Results: Sodium, (135-145) 142 mmol/L 03/13/25 Potassium, (3.3-5.1) 4.1 mmol/L 03/13/25 Chloride, (96-108) 109 mmol/L H 03/13/25 Carbon Dioxide, (22-29) 28 mmol/L 03/13/25 BUN, (9-16) 12 mg/dL 03/13/25 Creatinine, (0.5-1.4) 0.73 mg/dL 03/13/25 Calcium, (8.4-10.2) 9.0 mg/dL 03/13/25 Renal US 07/30/24 Assessment & Plan Assessment & Plan (1) Medullary sponge kidney: Code(s): Q61.5 - Medullary cystic kidney Category: Medical Plan Plan 1. Medullary Sponge Kidney With Flank Pain - The patient's new left-sided flank pain will be investigated with an upcoming renal ultrasound to rule out nephrolithiasis. - A 24-hour urine collection, which was previously deferred, will be completed next week. - Continue encouraging high fluid intake, including water and lemonade. - A follow-up visit will be scheduled after the ultrasound and urine test results are available. Medications: Discontinued bisacodyl Take per colonoscopy instructions Discontinued Reason: Patient no longer taking 5 mg PO BID 4 tabs 0RF lpbrtvinqw-gfkiqgseh-ljcmkzter 10-250-12.5 mg (Talicia) Take one tablet three times daily for 14 days. Must Take with a meal/food Discontinued Reason: Patient no longer taking 4 caps (4 x 10-250-12.5 mg) PO Q8H 14 days 168 ea 0RF Coding Level of Care Code Est Pt Level 4 (09748) Diagnoses Medullary sponge kidney Q61.5
--- OUTSIDE RECORDS SUMMARY | 2025-04-24 14:50 | XMS_ITS | Clinical Summary ---
Author Organization [facility] [address] [place] [address] [place] [phone] Phone Care Team Providers Care Editorial Intern Name Role Phone [place] Solitario MD Primary Care Provider [phone] Allergies Active Allergy Reactions Criticality Noted Date Comments Hydrocodone-Acetaminophen 04/11/2025 Medications gabapentin (NEURONTIN) 100 mg capsule Take [...] Encounters Date Type Department Care Team Description 04/11/2025 Telephone [facility] - [address] [place] [address] Herve Villaseñor NP 03/13/2025 Telephone [facility] - [address] [place] [address] Herve Villaseñor NP from Last 3 Months Family History Medical [...] on file Sexual Orientation Not on file Last Filed Vital Signs Vital Sign Reading [...] 01/21/2025 8:50 AM EDT Plan of Treatment Health Maintenance Due Date [...] patient's age to complete this topic Insurance [facility] [facility] Care Teams Editorial Intern Relationship Specialty Start Date End Date Florida Solitario MD [address] [place] [phone] PCP - General Internal Medicine 03/08/24
== END 2025-04-24 11:49 | disposition home or self-care (01) ==
LOC: HO.HKA 11:19
PROVIDERS: PCP Internal Medicine; Visit Provider Internal Medicine Hypertension Specialist
DX: Q61.5 Medullary cystic kidney (principal)
CPT/HCPCS: 99214

== ENCOUNTER → 2025-04-24 11:18 | Outpatient (BNVA) | payer OTHER, SELFPAY | PROVIDERS: PCP Internal Medicine; Visit Provider Internal Medicine Hypertension Specialist | DX: Q61.5 Medullary cystic kidney (principal); R10.A2 Flank pain, left side | CPT/HCPCS: 99212 ==

== ENCOUNTER 2025-04-28 12:35 | Outpatient (REF) | payer OTHER, SELFPAY ==
--- NOTE | ~2025-04-28 | US_ITS ---
CLINICAL HISTORY: R10.20 - Pelvic and perineal pain unspecified side US pelvis transabdominal and transvaginal with doppler interrogation Comparison: None Findings: Transabdominal scanning performed for overall anatomy. Transvaginal scanning performed for additional detail. Anteverted uterus 8.5 cm in length. Normal echotexture. A right-sided intramural fibroid measuring 24 x 19 x 21 mm, and an additional fundal intramural fibroid measuring 14 x 10 x 11 mm is present.. Normal endometrium, 5 mm thickness. Right ovary normal, 2.3 cm. Normal color flow Left ovary normal, 2.6 cm. Normal color flow No free fluid Impression: 1. Uterine fibroids as described above. This document has been electronically signed by: Jovan Rosas MD on 04/29/2025 14:26:39
--- OUTSIDE RECORDS SUMMARY | 2025-04-28 15:43 | XMS_ITS | Clinical Summary ---
Author Organization [facility] [address] [place] [address] [place] [phone] Phone Care Team Providers Care Supervisor Shipfitters Name Role Phone [place] Solitario MD Primary Care Provider [phone] Allergies Active Allergy Reactions Criticality Noted Date [...] Type Department Care Team Description 04/11/2025 Telephone [facility] - [address] [place] [address] Herve Villaseñor NP 03/13/2025 Telephone [facility] - [address] [place] [address] Herve Villaseñor NP from Last [...] patient's age to complete this topic Insurance [facility] [employer] Care Teams Supervisor Shipfitters Relationship Specialty Start Date End Date Florida Solitario MD [address] [place] [phone] PCP - General Internal Medicine 03/08/24
== END 2025-04-28 12:36 | disposition home or self-care (01) ==
LOC: HO.US 12:35
PROVIDERS: PCP Internal Medicine; Visit Provider Advanced Practice Midwife
DX: R10.20 Pelvic and perineal pain unspecified side (principal)
CPT/HCPCS: 76830; 76856

== ENCOUNTER → 2025-04-28 12:38 | Outpatient (BNV) | payer OTHER, SELFPAY | PROVIDERS: PCP Internal Medicine; Visit Provider Radiology Diagnostic Radiology | DX: D25.1 Intramural leiomyoma of uterus (principal) | CPT/HCPCS: 76830; 76856 ==